=== PATIENT | female | born 1935 | race Caucasian/White ===

== ENCOUNTER 2017-06-25 14:23 | Inpatient (IN) | END 2017-07-03 17:15 | disposition home or self-care (01) | DRG 871 ==

== ENCOUNTER 2018-12-07 19:18 | Inpatient (IN) | payer OTHER ==
[~2018-12-07] VITALS: Ht 165.1 cm; Wt 47.1 kg
[~2018-12-07 19:18] MED LIST: ALBU18HF INHALATION; ASPI-903 PO; BRIM15DR2 BOTH EYES; CALC500T11 PO; COL625 PO; CYCL5.5D BOTH EARS; FLUT100B PO; IBUP-1541 PO; LEVO50TA7 PO; LEVO750T8 PO; LOSA100T15 PO; METO-319 PO; OLOP2.5D5 BOTH EARS; OMEP20CA16 PO; PROC5TAB9 PO
[2018-12-07] MEDS ORDERED: ALBUTEROL 0.5% (NEB) 2.5 MG/0.5 ML AMP INH STA (19:58)
[2018-12-07] MEDS ORDERED: METHYLPREDNISOLONE 125 MG INJ IV STA (19:58)
[2018-12-07] MEDS ORDERED: CEFTRIAXONE 1 GM/50 ML (PMX) 50 ML IVPB STA (22:29)
[2018-12-07] MEDS ORDERED: VANCOMYCIN 1 GM (PMX) 250 ML IVPB STA (22:29)
--- NOTE | 2018-12-07 23:45 | ERD ---
ER Documentation Chief Complaint Chief Complaint SOB X'S 7 DAYS, HX PULMONARY FIBROSIS HPI This is a 83-year-old female with a history of pulmonary fibrosis is complaining of shortness of breath today with difficulty breathing, ROS All systems reviewed and are negative except as per history of present illness. Medications Home Meds Active Scripts Levofloxacin* (Levofloxacin*) 750 Mg Tablet, 750 MG PO DAILY for 5 Days, #5 TAB Prov:MICHAEL BURNHAM 07/03/17 Reported Medications Brimonidine Tartrate* (Alphagan P*) 0.1%-15 Ml Opht Drops, 1 DROP BOTH EYES BID, #1 EA 06/25/17 Fluticasone Furoate (Arnuity Ellipta) 100 Mcg Blst.w.dev, 1 DOSE PO BID, #30 06/25/17 Cyclosporine (Restasis Multidose) 5.5 Ml Drops, 1 DROP BOTH EARS DAILY, BOTTLE 06/25/17 Olopatadine HCl (Pazeo) 2.5 Ml Drops, 1 DROP BOTH EARS QHS, BOTTLE 06/25/17 Calcium Carbonate (Oysco-500) 500 Mg Tablet, 500 MG PO BID, TAB 06/25/17 Colesevelam Hcl* (Welchol*) 625 Mg Tablet, 625 MG PO BID, TAB 06/25/17 Albuterol Sulfate* (Ventolin HFA*) 18 Gm Hfa.aer.ad, 2 PUFF INHALATION Q4H PRN for WHEEZING AND SOB, #1 INHALER 06/25/17 Metoprolol Succinate* (Toprol XL*) 50 Mg Tab.er.24h, 50 MG PO DAILY, #30 TAB 06/25/17 Prochlorperazine* (Prochlorperazine*) 5 Mg Tablet, 5 MG PO TID, TAB 06/25/17 Omeprazole* (Omeprazole*) 20 Mg Capsule.dr, 20 MG PO DAILY, #30 CAP 06/25/17 Levothyroxine Sodium* (Levothyroxine Sodium*) 50 Mcg Tablet, 50 MCG PO BEFORE BREAKFAST, #30 TAB 06/25/17 Aspirin* (Aspirin* Chew) 81 Mg Tab.chew, 81 MG PO DAILY, TAB.CHEW 06/25/17 Ibuprofen* (Ibuprofen*) 400 Mg Tablet, 400 MG PO TID PRN for PAIN, TAB 06/25/17 Losartan Potassium* (Losartan Potassium*) 100 Mg Tablet, 100 MG PO DAILY, TAB 06/25/17 Allergies Allergies: Coded Allergies: Penicillins (Verified Allergy, Severe, 06/25/17) codeine (Verified Allergy, Severe, 06/25/17) PMhx/Soc History of Surgery: Yes Anesthesia Reaction: No Hx Neurological Disorder: No Hx Respiratory Disorders: Yes (asthma, lung fibrosis) Hx Cardiac Disorders: Yes (HTN, high cholesterol) Hx Psychiatric Problems: No Hx Miscellaneous Medical Probl: Yes Hx Alcohol Use: No Hx Substance Use: No Hx Tobacco Use: No Smoking Status: Never smoker Physical Exam Vitals Vital Signs Date Temp Pulse Resp B/P (MAP) Pulse Ox O2 O2 Flow FiO2 Time Delivery Rate 12/07/18 98.9 70 22 133/70 100 Nasal 4.0 23:11 (91) Cannula 12/07/18 76 28 138/67 100 Nasal 4.0 21:32 (90) Cannula 12/07/18 100 4.0 20:09 12/07/18 73 21 100 Nasal 4.0 20:08 Cannula 12/07/18 Nasal 4.0 20:00 Cannula 12/07/18 Nasal 4 20:00 Cannula 12/07/18 71 24 123/59 100 Nasal 20:00 (80) Cannula 12/07/18 97.4 85 20 140/67 93 19:21 (91) Physical Exam Const: Well-developed, well-nourished Head: Atraumatic, normocephalic Eyes: Normal Conjunctiva, PERRLA, EOMI, normal sclera, no nystagmus ENT: Normal External Ears, Nose and Mouth, moist mucus membranes. Neck: Full range of motion. No meningismus, no lymphadenopathy. Resp: Mild increased work of breathing with decreased breath sounds bilaterally Cardio: Regular rate and rhythm, no murmurs, S1 S2 present Abd: Soft, non tender x 4, non distended. Normal bowel sounds, no guarding or rebound, no pulsitile abdominal masses or bruits Skin: No petechiae or rashes, no ecchymosis , no maculopapular rash Back: No midline or flank tenderness Ext: No cyanosis, or edema, FROM x 4, normal inspection, neurovascularly intact x 4 Neur: Awake and alert, STR 5/5 x 4, sensation intact x 4, no focal findings, cerebellum intact Psych: Normal Mood and Affect Result Diagram: 12/07/18200012/07/182000 Results 24 hrs Laboratory Tests Test 12/07/18 20:01 White Blood Count 22.4 10^3/ul Red Blood Count 4.20 10^6/ul Hemoglobin 12.4 g/dl Hematocrit 37.3 % Mean Corpuscular Volume 88.8 fl Mean Corpuscular Hemoglobin 29.5 pg Mean Corpuscular Hemoglobin Concent 33.2 g/dl Red Cell Distribution Width 12.7 % Platelet Count 303 10^3/UL Mean Platelet Volume 9.2 fl Immature Granulocytes % 1.100 % Neutrophils % 87.0 % Lymphocytes % 7.8 % Monocytes % 3.5 % Eosinophils % 0.2 % Basophils % 0.4 % Nucleated Red Blood Cells % 0.0 /100WBC Immature Granulocytes # 0.250 10^3/ul Neutrophils # 19.5 10^3/ul Lymphocytes # 1.7 10^3/ul Monocytes # 0.8 10^3/ul Eosinophils # 0.1 10^3/ul Basophils # 0.1 10^3/ul Nucleated Red Blood Cells # 0.0 10^3/ul Sodium Level 133 mmol/L Potassium Level 4.0 mmol/L Chloride Level 95 mmol/L Carbon Dioxide Level 28 mmol/L Anion Gap 10 Blood Urea Nitrogen 18 mg/dl Creatinine 0.81 mg/dl Est Glomerular Filtrat Rate mL/min mL/min Glucose Level 114 mg/dl Calcium Level 9.3 mg/dl Troponin I < 0.012 ng/ml Current Medications Medications Dose Sig/Zan Start Time Status Last (Trade) Ordered Route PRN Stop Time Admin Dose Reason Admin Albuterol 10 mg ONCE STAT 12/07/18 DC 12/07/18 (Proventil INH 19:58 12/07/18 20:03 0.5% (Neb)) 19:59 125 mg ONCE STAT 12/07/18 DC 12/07/18 Methylprednis IV 19:58 12/07/18 20:17 olone Sodium 19:59 Succinate (Solu-Medrol) Vancomycin 250 ml @ ONCE STAT 12/07/18 12/07/18 HCl 125 mls/hr IVPB 22:29 12/08/18 23:25 00:28 Ceftriaxone 50 ml @ ONCE STAT 12/07/18 DC 12/07/18 Sodium 100 mls/hr IVPB 22:29 12/07/18 23:09 22:58 Procedures/MDM [place] [id number] Radiology Main Line: [phone] DIAGNOSTIC IMAGING REPORT Patient: REBECCA TALLEY : 1935 Age: 83 Sex: F MR #: [id number] DOS: 12/07/181957 Ordering MD: SANDIE GOLDMAN DO Location: E/R Room/Bed: PROCEDURE: Portable chest x-ray. CLINICAL INDICATION: Asthma exacerbation. TECHNIQUE: Portable AP view of the chest. COMPARISON: Chest x-ray dated 06/28/2017, chest x-ray dated 06/29/2017. FINDINGS: There is diffuse infiltration of the left lung. There is minimal right basilar atelectasis. The cardiac silhouette is magnified. There are aortic calcifications. No pleural effusion is seen. There is no pneumothorax. IMPRESSION: Diffuse left lung infiltrates, suspicious for pneumonia. RPTAT: HTAR .Guevara Kat MD, MD Date Time Electronically viewed and signed by .Guevara Kat MD, MD on 12/07/2018 21:05 .R/ CC: SANDIE GOLDMAN DO [id number] Patient is elevated white blood count 22.4 with infiltrate consistent with pneumonia. I will admit her to hospital due to pulmonary fibrosis with concomitant pneumonia. She is not appearing septic and does not meet sepsis criteria Departure Diagnosis: Primary Impression: Pneumonia Pneumonia type: due to unspecified organism Laterality: left Lung lo cation: lower lobe of lung Qualified Codes: J18.1 - Lobar pneumonia, unspecified organism Additional Impression: Pulmonary fibrosis Condition: Stable SANDIE GOLDMAN DO Dec 07, 2018 23:45
[2018-12-08] VITALS (10 sets, daily range): BP systolic 116–138; BP diastolic 57–69; PULSE 67–115; RESP 17–22; Ht 165.1 cm; Wt 47.1 kg
[2018-12-08] MEDS ORDERED: MAGNESIUM HYDROXIDE 30ML CUP PO PRN (02:00)
[2018-12-08] MEDS ORDERED: HYDROCODONE/APAP (5/325) TAB PO PRN (02:00)
[2018-12-08] MEDS ORDERED: NITROGLYCERIN (SL) 0.4 MG TAB SL PRN (02:00)
[2018-12-08] MEDS ORDERED: DOCUSATE SODIUM 100 MG CAP PO PRN (02:00)
[2018-12-08] MEDS ORDERED: NACL 0.9% 3 ML SYG IV SCH (02:00)
[2018-12-08] MEDS ORDERED: ACETAMINOPHEN 325 MG TAB PO PRN ×2 (02:00)
[2018-12-08] MEDS ORDERED: ONDANSETRON 4 MG INJ IV PRN ×2 (02:00)
[2018-12-08] MEDS ORDERED: morphine 2 MG INJ IV PRN (02:00)
[2018-12-08] MEDS ORDERED: LORAZEPAM 2 MG INJ IV PRN (02:00)
[2018-12-08] MEDS ORDERED: hydrALAzine 20 MG INJ IV PRN (02:00)
[2018-12-08] MEDS: SOD CHLORIDE 0.45% 1,000 ML IV SCH ×3 (03:06→16:35)
--- NOTE | 2018-12-08 04:46 | HP ---
Date/Time of Note Date/Time of Note DATE: 12/08/18 TIME: 04:46 Assessment/Plan VTE Prophylaxis SCD applied (from Nsg): No SCD contraindicated: other Pharmacological prophylaxis: heparin Lines/Catheters IV Catheter Type (from Nrs): [place] Assessment/Plan Hospital Course Assessment and plan: 83-year-old female past medical history of pulmonary fibrosis using oxygen at home, pulmonary hypertension, essential hypertension, hypothyroidism, high cholesterol, prior pneumonia who presents with shortness of breath likely secondary pneumonia and possible wheezing symptoms. 1. Shortness of breath: Again likely secondary pneumonia, there may be a small obstructive lung disease component. Patient does have a history of pulmonary hypertension upon fibrosis however. -We will start broad-spectrum antibodies, follow-up TSH, A1c, lipid panel, Tylenol. Beta fevers, follow final culture results -Continue oxygen, will obtain pulmonary consult as patient does see a resolution manager as an outpatient -Given her slight decreased breath sounds and wheezing symptoms, we will also order for breathing treatments [id number] and low-dose IV steroids -PT eval as well 2. History of pulmonary hypertension and not fibrosis: See #1 3. Hypertension: Blood pressure stable continue current medications 4. High cholesterol: Continue statin, lipid panel 5. Hypothyroidism: Continue Synthroid, follow-up thyroid panel Result Diagram: 12/07/18200012/07/182000 Results 24hrs Laboratory Tests Test 12/07/18 20:01 White Blood Count 22.4 #H Red Blood Count 4.20 # Hemoglobin 12.4 # Hematocrit 37.3 # Mean Corpuscular Volume 88.8 Mean Corpuscular Hemoglobin 29.5 Mean Corpuscular Hemoglobin Concent 33.2 Red Cell Distribution Width 12.7 Platelet Count 303 # Mean Platelet Volume 9.2 Immature Granulocytes % 1.100 H Neutrophils % 87.0 H Lymphocytes % 7.8 L Monocytes % 3.5 Eosinophils % 0.2 Basophils % 0.4 Nucleated Red Blood Cells % 0.0 Immature Granulocytes # 0.250 H Neutrophils # 19.5 H Lymphocytes # 1.7 Monocytes # 0.8 Eosinophils # 0.1 Basophils # 0.1 Nucleated Red Blood Cells # 0.0 Sodium Level 133 L Potassium Level 4.0 Chloride Level 95 L Carbon Dioxide Level 28 Anion Gap 10 Blood Urea Nitrogen 18 Creatinine 0.81 Est Glomerular Filtrat Rate mL/min Glucose Level 114 Calcium Level 9.3 Troponin I < 0.012 Free Thyroxine 1.34 HPI/ROS Admit Date/Time Admit Date/Time Dec 07, 2018 at 23:52 Hx of Present Illness 83-year-old female past medical history of pulmonary fibrosis using oxygen at home, pulmonary hypertension, essential hypertension, hypothyroidism, high cholesterol, prior pneumonia who presents with shortness of breath. Symptoms have been going on for the last few days. Patient also had a couple of episodes of nonbilious nonbloody vomiting symptoms, also some phlegm production, white in nature, denies any fever chills, constipation, nausea, no upper or lower GI bleeding, no chest pain. She did have a couple episodes of loose stools. When she came in today she had chest x-ray performed which showed left lung infiltrate suspicious for pneumonia. PMH/Family/Social Past Medical History Medications Current Medications Ondansetron HCl (Zofran Inj) 4 mg ER BRIDGE PRN IV NAUSEA/VOMITING; Start 12/08/18 at 00:00; Stop 12/08/18 at 23:59 Acetaminophen (Tylenol Tab) 650 mg ER BRIDGE PRN PO .MILD PAIN 1-3 OR TEMP; Start 12/08/18 at 00:00; Stop 12/08/18 at 23:59 IV Flush (NS 3 ml) 3 ml PER PROTOCOL IV ; Start 12/08/18 at 02:00 Ondansetron HCl (Zofran Inj) 4 mg Q6H PRN IV NAUSEA/VOMITING; Start 12/08/18 at 02:00 Acetaminophen (Tylenol Tab) 650 mg Q6H PRN PO .PAIN 1-3 OR TEMP; Start 12/08/18 at 02:00 Acetaminophen/ Hydrocodone Bitart ([place] (5/325)) 1 tab Q6H PRN PO .MOD PAIN 4- 6; Start 12/08/18 at 02:00 Morphine Sulfate (morphine) 2 mg Q4H PRN IV .SEVERE PAIN 7-10; Start 12/08/18 at 02:00 Docusate Sodium (Colace) 100 mg Q12H PRN PO .CONSTIPATION; Start 12/08/18 at 0 2:00 Magnesium Hydroxide (Milk Of Mag) 30 ml DAILY PRN PO .CONSTIPATION; Start 12/08/18 at 02:00 Heparin Sodium (Porcine) (Heparin (5000 Units/1ml)) 5,000 unit Q12 SC ; Start 12/08/18 at 09:00 Sodium Chloride 1,000 ml @ 75 mls/hr [id number] IV Last administered on 12/08/18at 03:06; Admin Dose 75 MLS/HR; Start 12/08/18 at 01:36 Lorazepam (Ativan) 0.5 mg Q6H PRN IV ANXIETY; Start 12/08/18 at 02:00 Albuterol/ Ipratropium (Duoneb) 3 ml Q4H RESP THERAPY HHN ; Start 12/08/18 at 05:00 Hydralazine HCl (Apresoline) 10 mg Q6H PRN IV ELEVATED BLOOD PRESSURE; Start 12/08/18 at 02:00 Nitroglycerin (Nitroglycerin (Sl Tab) 0.4 Mg) 1 tab Q5M PRN SL ANGINA; Start 12/08/18 at 02:00 Aspirin (Aspirin) 81 mg DAILY PO ; Start 12/08/18 at 09:00 Calcium Carbonate (Oyster Shell Calcium) 1.25 gm BID PO ; Start 12/08/18 at 09:00 Levothyroxine Sodium (Synthroid) 50 mcg BEFORE BREAKFAST PO ; Start 12/08/18 at 07:00 Miscellaneous Information 1 drop BID BOTH EYES ; Start 12/08/18 at 09:00; Status UNV Miscellaneous Information 1 drop DAILY BOTH EARS ; Start 12/08/18 at 09:00; Status UNV Miscellaneous Information 1 dose BID PO ; Start 12/08/18 at 09:00; Status UNV Miscellaneous Information 1 drop QHS BOTH EARS ; Start 12/08/18 at 21:00; Status UNV Methylprednisolone Sodium Succinate (Solu-Medrol) 60 mg Q8 IV ; Start 12/08/18 at 06:00 Aztreonam 50 ml @ 100 mls/hr Q12 IVPB ; Start 12/08/18 at 09:00 Pantoprazole (Protonix Tab) 40 mg DAILY@06 PO ; Start 12/08/18 at 06:00 Coded Allergies: Penicillins (Verified Allergy, Severe, 06/25/17) codeine (Verified Allergy, Severe, 06/25/17) Past Surgical History Past Surgical Hx: other (Hysterectomy, knee surgery) Social History Alcohol Use: none Smoking Status: Never smoker Drug Use: none Exam/Review of Systems Vital Signs Vitals Vital Signs Date Temp Pulse Resp B/P (MAP) Pulse Ox O2 O2 Flow FiO2 Time Delivery Rate 12/08/18 97.8 73 134/69 98 Nasal 2.0 04:00 (90) Cannula 12/08/18 26 03:27 Exam Exam Gen: Lying in bed, NAD Head: Atraumatic. Eyes: Normal Conjunctiva. ENT: Normal External Ears, Nose and Mouth. Neck: Full range of motion. No meningismus. Resp: Mild increased work of breathing with decreased breath sounds bilaterally Cardio: Regular rate and rhythm. Abd: Soft, nondistended, normal bowel sounds, non tender. Ext: No lower extremity edema bilaterally Neuro: No focal deficits TU LEIGH Dec 08, 2018 04:46
[2018-12-08] MEDS: ALBUTEROL/IPRATROPIUM (NEB) 3 ML AMP HHN SCH ×5 (05:22→20:43)
[2018-12-08] MEDS: LEVOTHYROXINE 50 MCG TAB PO SCH (06:11)
[2018-12-08] MEDS: PANTOPRAZOLE (EC) 40 MG TAB PO SCH (06:11)
[2018-12-08] MEDS: METHYLPREDNISOLONE 125 MG INJ IV SCH ×3 (06:11→21:03)
[2018-12-08] MEDS: AZTREONAM 1 GM/NS (PMX) 50 ML IVPB SCH ×2 (08:16→21:02)
[2018-12-08] MEDS: CALCIUM CARBONATE 1.25 GM TAB PO SCH ×2 (08:16→21:03)
[2018-12-08] MEDS: ASPIRIN 81 MG TAB PO SCH (08:17)
[2018-12-08] MEDS: HEPARIN 5,000 UNIT/1 ML VIAL SC SCH ×2 (08:17→21:15)
[2018-12-08] MEDS ORDERED: CYCLOSPORINE BOTH EARS SCH (09:00)
[2018-12-08] MEDS ORDERED: NON-FORMULARY/PATIENT OWN MED (Omeprazole* 20 MG) PO SCH (09:00)
--- NOTE | 2018-12-08 09:37 | PN ---
Date/Time of Note Date/Time of Note DATE: 12/08/18 TIME: 09:34 Assessment/Plan VTE Prophylaxis Risk score (from [facility] [place])>0 risk: 5 SCD applied (from [facility] [place]): No SCD contraindicated: low risk/ambulating Pharmacological prophylaxis: heparin Lines/Catheters IV Catheter Type (from [facility]): Peripheral IV Assessment/Plan Problems: (1) Pneumonia Status: Acute Comment: Clinically responding to antibiotic therapy. Continue treatment including breathing treatments Qualifiers: Pneumonia type: due to unspecified organism Laterality: left Lung location: lower lobe of lung Qualified Codes: J18.1 - Lobar pneumonia, unspecified organism (2) Pulmonary fibrosis Status: Chronic Comment: Stable at this time. (3) Hyperlipidemia Status: Chronic Comment: Maintain treatment at this time Qualifiers: Hyperlipidemia type: mixed hyperlipidemia Qualified Codes: E78.2 - Mixed hyperlipidemia (4) Hypothyroidism Status: Chronic Comment: Maintain replacement therapy Qualifiers: Hypothyroidism type: acquired Qualified Codes: E03.9 - Hypothyroidism, unspecified (5) Hypertension Status: Chronic Comment: Continue with angiotensin II receptor alva treatment Qualifiers: Hypertension type: essential hypertension Qualified Codes: I10 - Essential (primary) hypertension (6) Glaucoma (increased eye pressure) Status: Chronic Comment: Continue with outpatient treatment Qualifiers: Glaucoma type: unspecified Laterality: bilateral Qualified Codes: H40.9 - Unspecified glaucoma Result Diagram: 12/07/18200012/07/182000 Results 24hrs Laboratory Tests Test 12/07/18 20:01 White Blood Count 22.4 #H Red Blood Count 4.20 # Hemoglobin 12.4 # Hematocrit 37.3 # Mean Corpuscular Volume 88.8 Mean Corpuscular Hemoglobin 29.5 Mean Corpuscular Hemoglobin Concent 33.2 Red Cell Distribution Width 12.7 Platelet Count 303 # Mean Platelet Volume 9.2 Immature Granulocytes % 1.100 H Neutrophils % 87.0 H Lymphocytes % 7.8 L Monocytes % 3.5 Eosinophils % 0.2 Basophils % 0.4 Nucleated Red Blood Cells % 0.0 Immature Granulocytes # 0.250 H Neutrophils # 19.5 H Lymphocytes # 1.7 Monocytes # 0.8 Eosinophils # 0.1 Basophils # 0.1 Nucleated Red Blood Cells # 0.0 Sodium Level 133 L Potassium Level 4.0 Chloride Level 95 L Carbon Dioxide Level 28 Anion Gap 10 Blood Urea Nitrogen 18 Creatinine 0.81 Est Glomerular Filtrat Rate mL/min Glucose Level 114 Calcium Level 9.3 Troponin I < 0.012 Free Thyroxine 1.34 Subjective 24 Hr Interval Summary Free Text/Dictation Patient reports she is feeling better than when she came into the emergency room yesterday Constitutional: no complaints (Denies fevers chills or sweats) Respiratory: cough (Cough is reduced), shortness of breath (Improved) Cardiovascular: no complaints Gastrointestinal: no complaints Genitourinary: no complaints Neurologic: no complaints Exam/Review of Systems Exam Vitals Vital Signs Date Temp Pulse Resp B/P (MAP) Pulse Ox O2 O2 Flow FiO2 Time Delivery Rate 12/08/18 72 17 95 Nasal 2.0 08:25 Cannula 12/08/18 98.0 134/63 07:15 (86) Constitutional: alert, oriented Neck: supple, non-tender Respiratory: normal air movement, crackles/rales (Especially left-sided) Cardiovascular: regular rate and rhythm, nl pulses Gastrointestinal: soft, nl liver, spleen, non-tender Results Results 24hrs Laboratory Tests Test 12/07/18 20:01 White Blood Count 22.4 #H Red Blood Count 4.20 # Hemoglobin 12.4 # Hematocrit 37.3 # Mean Corpuscular Volume 88.8 Mean Corpuscular Hemoglobin 29.5 Mean Corpuscular Hemoglobin Concent 33.2 Red Cell Distribution Width 12.7 Platelet Count 303 # Mean Platelet Volume 9.2 Immature Granulocytes % 1.100 H Neutrophils % 87.0 H Lymphocytes % 7.8 L Monocytes % 3.5 Eosinophils % 0.2 Basophils % 0.4 Nucleated Red Blood Cells % 0.0 Immature Granulocytes # 0.250 H Neutrophils # 19.5 H Lymphocytes # 1.7 Monocytes # 0.8 Eosinophils # 0.1 Basophils # 0.1 Nucleated Red Blood Cells # 0.0 Sodium Level 133 L Potassium Level 4.0 Chloride Level 95 L Carbon Dioxide Level 28 Anion Gap 10 Blood Urea Nitrogen 18 Creatinine 0.81 Est Glomerular Filtrat Rate mL/min Glucose Level 114 Calcium Level 9.3 Troponin I < 0.012 Free Thyroxine 1.34 Medications Medication Current Medications Ondansetron HCl (Zofran Inj) 4 mg ER BRIDGE PRN IV NAUSEA/VOMITING; Start 12/08/18 at 00:00; Stop 12/08/18 at 23:59 Acetaminophen (Tylenol Tab) 650 mg ER BRIDGE PRN PO .MILD PAIN 1-3 OR TEMP; Start 12/08/18 at 00:00; Stop 12/08/18 at 23:59 IV Flush (NS 3 ml) 3 ml PER PROTOCOL IV ; Start 12/08/18 at 02:00 Ondansetron HCl (Zofran Inj) 4 mg Q6H PRN IV NAUSEA/VOMITING; Start 12/08/18 at 02:00 Acetaminophen (Tylenol Tab) 650 mg Q6H PRN PO .PAIN 1-3 OR TEMP; Start 12/08/18 at 02:00 Acetaminophen/ Hydrocodone Bitart ([place] (5/325)) 1 tab Q6H PRN PO .MOD PAIN 4- 6; Start 12/08/18 at 02:00 Morphine Sulfate (morphine) 2 mg Q4H PRN IV .SEVERE PAIN 7-10; Start 12/08/18 at 02:00 Docusate Sodium (Colace) 100 mg Q12H PRN PO .CONSTIPATION; Start 12/08/18 at 02:00 Magnesium Hydroxide (Milk Of Mag) 30 ml DAILY PRN PO .CONSTIPATION; Start 12/08/18 at 02:00 Heparin Sodium (Porcine) (Heparin (5000 Units/1ml)) 5,000 unit Q12 SC Last administered on 12/08/18at 08:17; Admin Dose 5,000 UNIT; Start 12/08/18 at 09:00 Sodium Chloride 1,000 ml @ 75 mls/hr [id number] IV Last administered on 12/08/18at 03:06; Admin Dose 75 MLS/HR; Start 12/08/18 at 01:36 Lorazepam (Ativan) 0.5 mg Q6H PRN IV ANXIETY; Start 12/08/18 at 02:00 Albuterol/ Ipratropium (Duoneb) 3 ml Q4H RESP THERAPY HHN Last administered on 12/08/18at 08:25; Admin Dose 3 ML; Start 12/08/18 at 05:00 Hydralazine HCl (Apresoline) 10 mg Q6H PRN IV ELEVATED BLOOD PRESSURE; Start 12/08/18 at 02:00 Nitroglycerin (Nitroglycerin (Sl Tab) 0.4 Mg) 1 tab Q5M PRN SL ANGINA; Start 12/08/18 at 02:00 Aspirin (Aspirin) 81 mg DAILY PO Last administered on 12/08/18 08:17; Admin Dose 81 MG; Start 12/08/18 at 09:00 Calcium Carbonate (Oyster Shell Calcium) 1.25 gm BID PO Last administered on 12/08/18 08:16; Admin Dose 1.25 GM; Start 12/08/18 at 09:00 Levothyroxine Sodium (Synthroid) 50 mcg BEFORE BREAKFAST PO Last administered on 12/08/18 06:11; Admin Dose 50 MCG; Start 12/08/18 at 07:00 Miscellaneous Information 1 drop BID BOTH EYES ; Start 12/08/18 at 09:00; Status UNV Miscellaneous Information 1 drop DAILY BOTH EARS ; Start 12/08/18 at 09:00; Status UNV Miscellaneous Information 1 dose BID PO ; Start 12/08/18 at 09:00; Status UNV Miscellaneous Information 1 drop QHS BOTH EARS ; Start 12/08/18 at 21:00; Status UNV Methylprednisolone Sodium Succinate (Solu-Medrol) 60 mg Q8 IV Last administered on 12/08/18 06:11; Admin Dose 60 MG; Start 12/08/18 at 06:00 Aztreonam 50 ml @ 100 mls/hr Q12 IVPB Last administered on 12/08/18 08:16; Admin Dose 100 MLS/HR; Start 12/08/18 at 09:00 Pantoprazole (Protonix Tab) 40 mg DAILY@06 PO Last administered on 12/08/18 06:11; Admin Dose 40 MG; Start 12/08/18 at 06:00 SALLY BOSTON MD Dec 08, 2018 09:37
--- NOTE | 2018-12-08 11:01 | CONS ---
Assessment/Plan Assessment/Plan Assessment/Plan (Daily) Chest x-ray was reviewed which is showing extensive fibrotic changes mostly involving the left lung without any interval change compared to chest x-ray performed in June 2017. Assessment recommendation 1. Patient with history of pulmonary fibrosis admitted with what appears to be acute bronchitis with worsening shortness of breath. 2. No interval change in chest x-ray compared to June 2017 chest x-ray. Continue current supportive care. Consultation Date/Type/Reason Admit Date/Time Dec 07, 2018 at 23:52 Date of Consultation: Dec 08, 2018 Type of Consult Pulmonary Patient is a very pleasant 83-year-old lady who came into the hospital with a few days history of chest congestion coughing and increased shortness of breath, patient denies any fever, hemoptysis, complains of scant yellow to white sputum production. Denies any chest pain. Since admission patient is feeling much better. Denies any nausea, vomiting any high fever or chills. Complains of very mild sore throat. Past medical history; 1. History of pulmonary fibrosis. 2. Chronic hypoxemia, O2 dependent at home. Medications; reviewed. Allergies; penicillin and codeine. Social history; noncontributory. Family history; patient is single, has 5 children. Has a very supportive family. Occupational history; noncontributory. Review of systems; denies any headache, seizures, sinus symptoms. Complains of cough with production of white to green sputum. Denies any hemoptysis. Any fever or chills. Denies any body aches or myalgias. Denies any abdominal pain, nausea vomiting, melena, hematochezia any urinary symptoms. Patient has fair appetite. Denies any weight loss. Does complain of chronic dyspnea on minimal exertion. General exam; elderly woman, awake alert, currently in no distress. Date/Time of Note DATE: 12/08/18 TIME: 10:57 Past Medical History Home Meds Active Scripts Levofloxacin* (Levofloxacin*) 750 Mg Tablet, 750 MG PO DAILY for 5 Days, #5 TAB Prov:MICHAEL BURNHAM 07/03/17 Reported Medications Brimonidine Tartrate* (Alphagan P*) 0.1%-15 Ml Opht Drops, 1 DROP BOTH EYES BID, #1 EA 06/25/17 Fluticasone Furoate (Arnuity Ellipta) 100 Mcg Blst.w.dev, 1 DOSE PO BID, #30 06/25/17 Cyclosporine (Restasis Multidose) 5.5 Ml Drops, 1 DROP BOTH EARS DAILY, BOTTLE 06/25/17 Olopatadine HCl (Pazeo) 2.5 Ml Drops, 1 DROP BOTH EARS QHS, BOTTLE 06/25/17 Calcium Carbonate (Oysco-500) 500 Mg Tablet, 500 MG PO BID, TAB 06/25/17 Colesevelam Hcl* (Welchol*) 625 Mg Tablet, 625 MG PO BID, TAB 06/25/17 Albuterol Sulfate* (Ventolin HFA*) 18 Gm Hfa.aer.ad, 2 PUFF INHALATION Q4H PRN for WHEEZING AND SOB, #1 INHALER 06/25/17 Metoprolol Succinate* (Toprol XL*) 50 Mg Tab.er.24h, 50 MG PO DAILY, #30 TAB 06/25/17 Prochlorperazine* (Prochlorperazine*) 5 Mg Tablet, 5 MG PO TID, TAB 06/25/17 Omeprazole* (Omeprazole*) 20 Mg Capsule.dr, 20 MG PO DAILY, #30 CAP 06/25/17 Levothyroxine Sodium* (Levothyroxine Sodium*) 50 Mcg Tablet, 50 MCG PO BEFORE BREAKFAST, #30 TAB 06/25/17 Aspirin* (Aspirin* Chew) 81 Mg Tab.chew, 81 MG PO DAILY, TAB.CHEW 06/25/17 Ibuprofen* (Ibuprofen*) 400 Mg Tablet, 400 MG PO TID PRN for PAIN, TAB 06/25/17 Losartan Potassium* (Losartan Potassium*) 100 Mg Tablet, 100 MG PO DAILY, TAB 06/25/17 Medications Current Medications IV Flush (NS 3 ml) 3 ml PER PROTOCOL IV ; Start 12/08/18 at 02:00 Ondansetron HCl (Zofran Inj) 4 mg Q6H PRN IV NAUSEA/VOMITING; Start 12/08/18 at 02:00 Acetaminophen (Tylenol Tab) 650 mg Q6H PRN PO .PAIN 1-3 OR TEMP; Start 12/08/18 at 02:00 Acetaminophen/ Hydrocodone Bitart ([place] (5/325)) 1 tab Q6H PRN PO .MOD PAIN 4- 6; Start 12/08/18 at 02:00 Morphine Sulfate (morphine) 2 mg Q4H PRN IV .SEVERE PAIN 7-10; Start 12/08/18 at 02:00 Docusate Sodium (Colace) 100 mg Q12H PRN PO .CONSTIPATION; Start 12/08/18 at 02:00 Magnesium Hydroxide (Milk Of Mag) 30 ml DAILY PRN PO .CONSTIPATION; Start 12/08/18 at 02:00 Heparin Sodium (Porcine) (Heparin (5000 Units/1ml)) 5,000 unit Q12 SC Last administered on 12/08/18at 08:17; Admin Dose 5,000 UNIT; Start 12/08/18 at 09:00 Sodium Chloride 1,000 ml @ 75 mls/hr [id number] IV Last administered on 12/08/18at 03:06; Admin Dose 75 MLS/HR; Start 12/08/18 at 01:36 Lorazepam (Ativan) 0.5 mg Q6H PRN IV ANXIETY; Start 12/08/18 at 02:00 Albuterol/ Ipratropium (Duoneb) 3 ml Q4H RESP THERAPY HHN Last administered on 12/08/18at 08:25; Admin Dose 3 ML; Start 12/08/18 at 05:00 Hydralazine HCl (Apresoline) 10 mg Q6H PRN IV ELEVATED BLOOD PRESSURE; Start 12/08/18 at 02:00 Nitroglycerin (Nitroglycerin (Sl Tab) 0.4 Mg) 1 tab Q5M PRN SL ANGINA; Start 12/08/18 at 02:00 Aspirin (Aspirin) 81 mg DAILY PO Last administered on 12/08/18at 08:17; Admin Dose 81 MG; Start 12/08/18 at 09:00 Calcium Carbonate (Oyster Shell Calcium) 1.25 gm BID PO Last administered on 12/08/18at 08:16; Admin Dose 1.25 GM; Start 12/08/18 at 09:00 Levothyroxine Sodium (Synthroid) 50 mcg BEFORE BREAKFAST PO Last administered on 12/08/18at 06:11; Admin Dose 50 MCG; Start 12/08/18 at 07:00 Miscellaneous Information 1 drop BID BOTH EYES ; Start 12/08/18 at 09:00; Status UNV Miscellaneous Information 1 drop DAILY BOTH EARS ; Start 12/08/18 at 09:00; Status UNV Miscellaneous Information 1 dose BID PO ; Start 12/08/18 at 09:00; Status UNV Miscellaneous Information 1 drop QHS BOTH EARS ; Start 12/08/18 at 21:00; Status UNV Methylprednisolone Sodium Succinate (Solu-Medrol) 60 mg Q8 IV Last administered on 12/08/18at 06:11; Admin Dose 60 MG; Start 12/08/18 at 06:00 Aztreonam 50 ml @ 100 mls/hr Q12 IVPB Last administered on 12/08/18at 08:16; Admin Dose 100 MLS/HR; Start 12/08/18 at 09:00 Pantoprazole (Protonix Tab) 40 mg DAILY@06 PO Last administered on 12/08/18at 06:11; Admin Dose 40 MG; Start 12/08/18 at 06:00 Allergies: Coded Allergies: Penicillins (Verified Allergy, Severe, 06/25/17) codeine (Verified Allergy, Severe, 06/25/17) Past Surgical History Past Surgical Hx: other (Hysterectomy, knee surgery) Social History Alcohol Use: none Smoking Status: Never smoker Drug Use: none Exam/Review of Systems Exam Vitals Vital Signs Date Temp Pulse Resp B/P (MAP) Pulse Ox O2 O2 Flow FiO2 Time Delivery Rate 12/08/18 72 17 95 Nasal 2.0 08:25 Cannula 12/08/18 98.0 134/63 07:15 (86) Exam H EENT exam; supple neck, no JVD. No lymphadenopathy. Midline trachea. No thyromegaly. No neck masses. Patient is edentulous and has dentures in place. Chest exam; bilateral crackles. S1-S2 audible, no murmurs. Regular rhythm. Abdomen exam; soft, nontender. No organomegaly. Bowel sounds audible. Extremity exam : No peripheral edema or clubbing. 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 No Results Result Diagram: 12/07/18200012/07/182000 Results 24hrs Laboratory Tests Test 12/07/18 20:01 White Blood Count 22.4 #H Red Blood Count 4.20 # Hemoglobin 12.4 # Hematocrit 37.3 # Mean Corpuscular Volume 88.8 Mean Corpuscular Hemoglobin 29.5 Mean Corpuscular Hemoglobin Concent 33.2 Red Cell Distribution Width 12.7 Platelet Count 303 # Mean Platelet Volume 9.2 Immature Granulocytes % 1.100 H Neutrophils % 87.0 H Lymphocytes % 7.8 L Monocytes % 3.5 Eosinophils % 0.2 Basophils % 0.4 Nucleated Red Blood Cells % 0.0 Immature Granulocytes # 0.250 H Neutrophils # 19.5 H Lymphocytes # 1.7 Monocytes # 0.8 Eosinophils # 0.1 Basophils # 0.1 Nucleated Red Blood Cells # 0.0 Sodium Level 133 L Potassium Level 4.0 Chloride Level 95 L Carbon Dioxide Level 28 Anion Gap 10 Blood Urea Nitrogen 18 Creatinine 0.81 Est Glomerular Filtrat Rate mL/min Glucose Level 114 Calcium Level 9.3 Troponin I < 0.012 Free Thyroxine 1.34 Medications Medication Current Medications IV Flush (NS 3 ml) 3 ml PER PROTOCOL IV ; Start 12/08/18 at 02:00 Ondansetron HCl (Zofran Inj) 4 mg Q6H PRN IV NAUSEA/VOMITING; Start 12/08/18 at 02:00 Acetaminophen (Tylenol Tab) 650 mg Q6H PRN PO .PAIN 1-3 OR TEMP; Start 12/08/18 at 02:00 Acetaminophen/ Hydrocodone Bitart ([place] (5/325)) 1 tab Q6H PRN PO .MOD PAIN 4- 6; Start 12/08/18 at 02:00 Morphine Sulfate (morphine) 2 mg Q4H PRN IV .SEVERE PAIN 7-10; Start 12/08/18 at 02:00 Docusate Sodium (Colace) 100 mg Q12H PRN PO .CONSTIPATION; Start 12/08/18 at 02:00 Magnesium Hydroxide (Milk Of Mag) 30 ml DAILY PRN PO .CONSTIPATION; Start 12/08/18 at 02:00 Heparin Sodium (Porcine) (Heparin (5000 Units/1ml)) 5,000 unit Q12 SC Last administered on 12/08/18at 08:17; Admin Dose 5,000 UNIT; Start 12/08/18 at 09:00 Sodium Chloride 1,000 ml @ 75 mls/hr [id number] IV Last administered on 12/08/18at 03:06; Admin Dose 75 MLS/HR; Start 12/08/18 at 01:36 Lorazepam (Ativan) 0.5 mg Q6H PRN IV ANXIETY; Start 12/08/18 at 02:00 Albuterol/ Ipratropium (Duoneb) 3 ml Q4H RESP THERAPY HHN Last administered on 12/08/18 08:25; Admin Dose 3 ML; Start 12/08/18 at 05:00 Hydralazine HCl (Apresoline) 10 mg Q6H PRN IV ELEVATED BLOOD PRESSURE; Start 12/08/18 at 02:00 Nitroglycerin (Nitroglycerin (Sl Tab) 0.4 Mg) 1 tab Q5M PRN SL ANGINA; Start 12/08/18 at 02:00 Aspirin (Aspirin) 81 mg DAILY PO Last administered on 12/08/18 08:17; Admin Dose 81 MG; Start 12/08/18 at 09:00 Calcium Carbonate (Oyster Shell Calcium) 1.25 gm BID PO Last administered on 12/08/18 08:16; Admin Dose 1.25 GM; Start 12/08/18 at 09:00 Levothyroxine Sodium (Synthroid) 50 mcg BEFORE BREAKFAST PO Last administered on 12/08/18 06:11; Admin Dose 50 MCG; Start 12/08/18 at 07:00 Miscellaneous Information 1 drop BID BOTH EYES ; Start 12/08/18 at 09:00; Status UNV Miscellaneous Information 1 drop DAILY BOTH EARS ; Start 12/08/18 at 09:00; Status UNV Miscellaneous Information 1 dose BID PO ; Start 12/08/18 at 09:00; Status UNV Miscellaneous Information 1 drop QHS BOTH EARS ; Start 12/08/18 at 21:00; Status UNV Methylprednisolone Sodium Succinate (Solu-Medrol) 60 mg Q8 IV Last administered on 12/08/18 06:11; Admin Dose 60 MG; Start 12/08/18 at 06:00 Aztreonam 50 ml @ 100 mls/hr Q12 IVPB Last administered on 12/08/18 08:16; Admin Dose 100 MLS/HR; Start 12/08/18 at 09:00 Pantoprazole (Protonix Tab) 40 mg DAILY@06 PO Last administered on 12/08/18 06:11; Admin Dose 40 MG; Start 12/08/18 at 06:00 AIDE GONZALES Dec 08, 2018 11:01
[2018-12-08] MEDS: BRIMONIDINE 0.15% 5 ML OPH BOTH EYES SCH ×2 (12:13→21:02)
[2018-12-08] MEDS: OLOPATADINE 0.1% 5 ML OPH BOTH EYES SCH ×2 (13:02→21:01)
[2018-12-08] MEDS: FLUTICASONE 0.05% 16 GM NAS SPRAY NASAL SCH (21:02)
[2018-12-09] VITALS (10 sets, daily range): BP systolic 117–131; BP diastolic 56–77; PULSE 69–89; RESP 17–19
[2018-12-09] MEDS: ALBUTEROL/IPRATROPIUM (NEB) 3 ML AMP HHN SCH ×6 (01:49→20:58)
[2018-12-09] MEDS: LEVOTHYROXINE 50 MCG TAB PO SCH (06:15)
[2018-12-09] MEDS: PANTOPRAZOLE (EC) 40 MG TAB PO SCH (06:15)
[2018-12-09] MEDS: SOD CHLORIDE 0.45% 1,000 ML IV SCH (06:16)
[2018-12-09] MEDS: METHYLPREDNISOLONE 125 MG INJ IV SCH ×3 (06:16→21:22)
[2018-12-09] MEDS: ASPIRIN 81 MG TAB PO SCH (08:03)
[2018-12-09] MEDS: BRIMONIDINE 0.15% 5 ML OPH BOTH EYES SCH ×2 (08:03→21:21)
[2018-12-09] MEDS: HEPARIN 5,000 UNIT/1 ML VIAL SC SCH ×2 (08:03→21:30)
[2018-12-09] MEDS: OLOPATADINE 0.1% 5 ML OPH BOTH EYES SCH ×2 (08:03→21:21)
[2018-12-09] MEDS: FLUTICASONE 0.05% 16 GM NAS SPRAY NASAL SCH ×2 (08:03→21:22)
[2018-12-09] MEDS: CALCIUM CARBONATE 1.25 GM TAB PO SCH ×2 (08:03→21:22)
--- NOTE | 2018-12-09 09:17 | PN ---
Date/Time of Note Date/Time of Note DATE: 12/09/18 TIME: 09:13 Assessment/Plan VTE Prophylaxis Risk score (from Nsg)>0 risk: 5 Pharmacological prophylaxis: heparin Lines/Catheters IV Catheter Type (from Nrsg): Peripheral IV Assessment/Plan Hospital Course S: breathing is better O: Constitutional: alert, oriented, elderly Head: atraumatic, normocephalic Respiratory: diminished, bibasal crackles Cardiovascular: tachy, no M Gastrointestinal: S/ NT / ND / +BS Extremities: no edema, good radial pulses assessment and plan: 83-year-old pleasant female who had presented to the emergency room with shortness of breath, previously on home oxygen for chronic pulmonary fibrosis who is admitted and managed as follows 1. Acute respiratory failure on chronic respiratory failure -likely 2.2 #3 -Patient was never completely ruled out for an acute coronary syndrome as shortness of breath was thought to be secondary to pulmonary source, but for completeness we will rule out an ACS now and get a 2D echo -Pulmonary also feels there is no real change in the chest x-ray as compared to prior -continue bronchodilators -Continue antibiotics 2. Leucocytosis -steroid induced versus Sepsis -wbc was high on arrival 3. Acute bronchitis with possible concern for pneumonia with history of pulmonary fibrosis and pulmonary hypertension 4. Chronic normocytic anemia 5. Hyponatremia likely dilutional -spot diuresis 6. Chronic hypothyroidism on Synthroid therapy -Tight control? slightly reduce synthroid dose -Evaluation of TSH and free T4 is not highly suggestive of tachycardia being secondary to hyper thyroidism 7. Hypertension: Currently well controlled 8. Chronic glaucoma 9. 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 She did have mildly elevated peak PA systolic pressure of 44 however consistent with pulm HTN 11. Diastolic CHF? check BNP Dispo: -remain on tele for now for cardiac monitoring, plan to dc tomorrow if HR and serum Na improved Prophylaxis : Heparin Result Diagram: 12/09/18 0454 12/09/18 0454 Results 24hrs Laboratory Tests Test 12/09/18 04:54 White Blood Count 22.9 H Red Blood Count 3.45 L Hemoglobin 10.1 L Hematocrit 30.5 L Mean Corpuscular Volume 88.4 Mean Corpuscular Hemoglobin 29.3 Mean Corpuscular Hemoglobin Concent 33.1 Red Cell Distribution Width 13.0 Platelet Count 279 Mean Platelet Volume 9.8 Immature Granulocytes % 2.700 H Neutrophils % 91.9 H Lymphocytes % 2.9 L Monocytes % 2.2 Eosinophils % 0.0 Basophils % 0.3 Nucleated Red Blood Cells % 0.0 Immature Granulocytes # 0.610 H Neutrophils # 21.1 H Lymphocytes # 0.7 L Monocytes # 0.5 Eosinophils # 0.0 Basophils # 0.1 Nucleated Red Blood Cells # 0.0 Sodium Level 131 L Potassium Level 3.9 Chloride Level 96 L Carbon Dioxide Level 29 Anion Gap 6 Blood Urea Nitrogen 18 Creatinine 0.72 Est Glomerular Filtrat Rate mL/min Glucose Level 154 Hemoglobin A1c 5.7 Calcium Level 8.9 Phosphorus Level 3.3 Magnesium Level 2.1 Triglycerides Level 66 Cholesterol Level 152 LDL Cholesterol, Calculated 66 HDL Cholesterol 73 Cholesterol/HDL Ratio 2.0 Thyroid Stimulating Hormone (TSH) 0.341 L Exam/Review of Systems Exam Vitals Vital Signs Date Temp Pulse Resp B/P (MAP) Pulse Ox O2 O2 Flow FiO2 Time Delivery Rate 12/09/18 82 17 97 Nasal 2.0 08:11 Cannula 12/09/18 98.0 119/57 07:32 (77) Intake and Output 12/08/18 12/08/18 12/09/18 1515:00 23:00 07:00 IntakeIntake Total 400 ml BalanceBalance 400 ml Results Results 24hrs Laboratory Tests Test 12/09/18 04:54 White Blood Count 22.9 H Red Blood Count 3.45 L Hemoglobin 10.1 L Hematocrit 30.5 L Mean Corpuscular Volume 88.4 Mean Corpuscular Hemoglobin 29.3 Mean Corpuscular Hemoglobin Concent 33.1 Red Cell Distribution Width 13.0 Platelet Count 279 Mean Platelet Volume 9.8 Immature Granulocytes % 2.700 H Neutrophils % 91.9 H Lymphocytes % 2.9 L Monocytes % 2.2 Eosinophils % 0.0 Basophils % 0.3 Nucleated Red Blood Cells % 0.0 Immature Granulocytes # 0.610 H Neutrophils # 21.1 H Lymphocytes # 0.7 L Monocytes # 0.5 Eosinophils # 0.0 Basophils # 0.1 Nucleated Red Blood Cells # 0.0 Sodium Level 131 L Potassium Level 3.9 Chloride Level 96 L Carbon Dioxide Level 29 Anion Gap 6 Blood Urea Nitrogen 18 Creatinine 0.72 Est Glomerular Filtrat Rate mL/min Glucose Level 154 Hemoglobin A1c 5.7 Calcium Level 8.9 Phosphorus Level 3.3 Magnesium Level 2.1 Triglycerides Level 66 Cholesterol Level 152 LDL Cholesterol, Calculated 66 HDL Cholesterol 73 Cholesterol/HDL Ratio 2.0 Thyroid Stimulating Hormone (TSH) 0.341 L Medications Medication Current Medications IV Flush (NS 3 ml) 3 ml PER PROTOCOL IV ; Start 12/08/18 at 02:00 Ondansetron HCl (Zofran Inj) 4 mg Q6H PRN IV NAUSEA/VOMITING; Start 12/08/18 at 02:00 Acetaminophen (Tylenol Tab) 650 mg Q6H PRN PO .PAIN 1-3 OR TEMP; Start 12/08/18 at 02:00 Acetaminophen/ Hydrocodone Bitart ([place] (5/325)) 1 tab Q6H PRN PO .MOD PAIN 4- 6; Start 12/08/18 at 02:00 Morphine Sulfate (morphine) 2 mg Q4H PRN IV .SEVERE PAIN 7-10; Start 12/08/18 at 02:00 Docusate Sodium (Colace) 100 mg Q12H PRN PO .CONSTIPATION; Start 12/08/18 at 02:00 Magnesium Hydroxide (Milk Of Mag) 30 ml DAILY PRN PO .CONSTIPATION; Start 12/08/18 at 02:00 Heparin Sodium (Porcine) (Heparin (5000 Units/1ml)) 5,000 unit Q12 SC Last ad ministered on 12/09/18at 08:03; Admin Dose 5,000 UNIT; Start 12/08/18 at 09:00 Sodium Chloride 1,000 ml @ 75 mls/hr [id number] IV Last administered on 12/09/18at 06:16; Admin Dose 75 MLS/HR; Start 12/08/18 at 01:36 Lorazepam (Ativan) 0.5 mg Q6H PRN IV ANXIETY; Start 12/08/18 at 02:00 Albuterol/ Ipratropium (Duoneb) 3 ml Q4H RESP THERAPY HHN Last administered on 12/09/18at 08:10; Admin Dose 3 ML; Start 12/08/18 at 05:00 Hydralazine HCl (Apresoline) 10 mg Q6H PRN IV ELEVATED BLOOD PRESSURE; Start 12/08/18 at 02:00 Nitroglycerin (Nitroglycerin (Sl Tab) 0.4 Mg) 1 tab Q5M PRN SL ANGINA; Start 12/08/18 at 02:00 Aspirin (Aspirin) 81 mg DAILY PO Last administered on 12/09/18 08:03; Admin Dose 81 MG; Start 12/08/18 at 09:00 Calcium Carbonate (Oyster Shell Calcium) 1.25 gm BID PO Last administered on 08:03; Admin Dose 1.25 GM; Start 12/08/18 at 09:00 Levothyroxine Sodium (Synthroid) 50 mcg BEFORE BREAKFAST PO Last administered on 12/09/18 06:15; Admin Dose 50 MCG; Start 12/08/18 at 07:00 Brimonidine Tartrate (Alphagan P 0.15%) 1 drop BID BOTH EYES Last administered on 12/09/18 08:03; Admin Dose 1 DROP; Start 12/08/18 at 12:00 Fluticasone Propionate (Flonase 0.05% Nasal) 1 spray BID NASAL Last administered on 12/09/18 08:03; Admin Dose 1 SPRAY; Start 12/08/18 at 21:00 Olopatadine HCl (Patanol 0.1% Oph) 1 drop BID BOTH EYES Last administered on 12/09/18 08:03; Admin Dose 1 DROP; Start 12/08/18 at 12:00 Methylprednisolone Sodium Succinate (Solu-Medrol) 60 mg Q8 IV Last administered on 12/09/18 06:16; Admin Dose 60 MG; Start 12/08/18 at 06:00; Stop 12/11/18 at 05:59 Aztreonam 50 ml @ 100 mls/hr Q12 IVPB Last administered on 12/08/18 21:02; Admin Dose 100 MLS/HR; Start 12/08/18 at 09:00 Pantoprazole (Protonix Tab) 40 mg DAILY@06 PO Last administered on 12/09/18 06:15; Admin Dose 40 MG; Start 12/08/18 at 06:00 LAUREEN VANEGAS Dec 09, 2018 09:17
[2018-12-09] MEDS ORDERED: FUROSEMIDE 20 MG INJ IV ONE (09:30)
[2018-12-09] MEDS: AZTREONAM 1 GM/NS (PMX) 50 ML IVPB SCH ×2 (10:30→21:19)
[2018-12-09] MEDS: DOCUSATE SODIUM 100 MG CAP PO SCH ×2 (10:30→21:22)
--- NOTE | 2018-12-09 11:29 | CONS ---
Assessment/Plan Assessment/Plan Assessment/Plan (Daily) Assessment and recommendations; 1. Patient with history of pulmonary fibrosis admitted with what appears to be acute bronchitis with possibly some element of bronchopneumonia, clinically improving. 2. History of hypertension and hypothyroidism. Continue current supportive care. Consultation Date/Type/Reason Admit Date/Time Dec 07, 2018 at 23:52 Initial Consult Date 12/08/18 Type of Consult Pulmonary Patient is a very pleasant 83-year-old lady who came into the hospital with a few days history of chest congestion coughing and increased shortness of breath, patient denies any fever, hemoptysis, complains of scant yellow to white sputum production. Denies any chest pain. Since admission patient is feeling much better. Denies any nausea, vomiting any high fever or chills. Complains of very mild sore throat. Past medical history; 1. History of pulmonary fibrosis. 2. Chronic hypoxemia, O2 dependent at home. Medications; reviewed. Allergies; penicillin and codeine. Social history; noncontributory. Family history; patient is single, has 5 children. Has a very supportive family. Occupational history; noncontributory. Review of systems; denies any headache, seizures, sinus symptoms. Complains of cough with production of white to green sputum. Denies any hemoptysis. Any fever or chills. Denies any body aches or myalgias. Denies any abdominal pain, nausea vomiting, melena, hematochezia any urinary symptoms. Patient has fair appetite. Denies any weight loss. Does complain of chronic dyspnea on minimal exertion. General exam; elderly woman, awake alert, currently in no distress. Date/Time of Note DATE: 12/09/18 TIME: 11:28 24 HR Interval Summary Free Text/Dictation Patient's condition is stable. Reports decreasing chest congestion and shortness of breath. General exam; elderly woman, appears comfortable. Awake and alert. Currently no distress. On 2 L nasal cannula. Exam/Review of Systems Exam Vitals Vital Signs Date Temp Pulse Resp B/P (MAP) Pulse Ox O2 O2 Flow FiO2 Time Delivery Rate 12/09/18 82 17 97 Nasal 2.0 08:11 Cannula 12/09/18 98.0 119/57 07:32 (77) Intake and Output 12/08/18 12/08/18 12/09/18 1515:00 23:00 07:00 IntakeIntake Total 400 ml BalanceBalance 400 ml Exam H EENT exam; supple neck, no JVD. No lymphadenopathy. Midline trachea. No thyromegaly. Patient has dentures in place. Chest exam; bilateral crackles. S1-S2 audible, no murmurs. Regular rhythm. Abdomen exam; soft, scaphoid. Nontender. No organomegaly. Bowel sounds audible. Extremity exam; no peripheral edema clubbing. 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 Results Result Diagram: 12/09/18 0454 12/09/18 0454 Results 24hrs Laboratory Tests Test 12/09/18 04:52 12/09/18 04:54 Creatine Kinase < 20 L Creatine Kinase Index Creatinine Kinase MB (Mass) 1.38 Troponin I < 0.012 White Blood Count 22.9 H Red Blood Count 3.45 L Hemoglobin 10.1 L Hematocrit 30.5 L Mean Corpuscular Volume 88.4 Mean Corpuscular Hemoglobin 29.3 Mean Corpuscular Hemoglobin Concent 33.1 Red Cell Distribution Width 13.0 Platelet Count 279 Mean Platelet Volume 9.8 Immature Granulocytes % 2.700 H Neutrophils % 91.9 H Lymphocytes % 2.9 L Monocytes % 2.2 Eosinophils % 0.0 Basophils % 0.3 Nucleated Red Blood Cells % 0.0 Immature Granulocytes # 0.610 H Neutrophils # 21.1 H Lymphocytes # 0.7 L Monocytes # 0.5 Eosinophils # 0.0 Basophils # 0.1 Nucleated Red Blood Cells # 0.0 Sodium Level 131 L Potassium Level 3.9 Chloride Level 96 L Carbon Dioxide Level 29 Anion Gap 6 Blood Urea Nitrogen 18 Creatinine 0.72 Est Glomerular Filtrat Rate mL/min Glucose Level 154 Hemoglobin A1c 5.7 Calcium Level 8.9 Phosphorus Level 3.3 Magnesium Level 2.1 Triglycerides Level 66 Cholesterol Level 152 LDL Cholesterol, Calculated 66 HDL Cholesterol 73 Cholesterol/HDL Ratio 2.0 Thyroid Stimulating Hormone (TSH) 0.341 L Medications Medication Current Medications IV Flush (NS 3 ml) 3 ml PER PROTOCOL IV ; Start 12/08/18 at 02:00 Ondansetron HCl (Zofran Inj) 4 mg Q6H PRN IV NAUSEA/VOMITING; Start 12/08/18 at 02:00 Acetaminophen (Tylenol Tab) 650 mg Q6H PRN PO .PAIN 1-3 OR TEMP; Start 12/08/18 at 02:00 Acetaminophen/ Hydrocodone Bitart ([place] (5/325)) 1 tab Q6H PRN PO .MOD PAIN 4- 6; Start 12/08/18 at 02:00 Morphine Sulfate (morphine) 2 mg Q4H PRN IV .SEVERE PAIN 7-10; Start 12/08/18 at 02:00 Magnesium Hydroxide (Milk Of Mag) 30 ml DAILY PRN PO .CONSTIPATION; Start 12/08/18 at 02:00 Heparin Sodium (Porcine) (Heparin (5000 Units/1ml)) 5,000 unit Q12 SC Last administered on 12/09/18 08:03; Admin Dose 5,000 UNIT; Start 12/08/18 at 09:00 Lorazepam (Ativan) 0.5 mg Q6H PRN IV ANXIETY; Start 12/08/18 at 02:00 Albuterol/ Ipratropium (Duoneb) 3 ml Q4H RESP THERAPY HHN Last administered on 12/09/18 08:10; Admin Dose 3 ML; Start 12/08/18 at 05:00 Hydralazine HCl (Apresoline) 10 mg Q6H PRN IV ELEVATED BLOOD PRESSURE; Start 12/08/18 at 02:00 Nitroglycerin (Nitroglycerin (Sl Tab) 0.4 Mg) 1 tab Q5M PRN SL ANGINA; Start 12/08/18 at 02:00 Aspirin (Aspirin) 81 mg DAILY PO Last administered on 12/09/18 08:03; Admin Dose 81 MG; Start 12/08/18 at 09:00 Calcium Carbonate (Oyster Shell Calcium) 1.25 gm BID PO Last administered on 12/09/18 08:03; Admin Dose 1.25 GM; Start 12/08/18 at 09:00 Brimonidine Tartrate (Alphagan P 0.15%) 1 drop BID BOTH EYES Last administered on 12/09/18 08:03; Admin Dose 1 DROP; Start 12/08/18 at 12:00 Fluticasone Propionate (Flonase 0.05% Nasal) 1 spray BID NASAL Last administered on 12/09/18 08:03; Admin Dose 1 SPRAY; Start 12/08/18 at 21:00 Olopatadine HCl (Patanol 0.1% Oph) 1 drop BID BOTH EYES Last administered on 6/10/19at 08:03; Admin Dose 1 DROP; Start 12/08/18 at 12:00 Methylprednisolone Sodium Succinate (Solu-Medrol) 60 mg Q8 IV Last administered on 12/09/18at 06:16; Admin Dose 60 MG; Start 12/08/18 at 06:00; Stop 12/11/18 at 05:59 Aztreonam 50 ml @ 100 mls/hr Q12 IVPB Last administered on 12/09/18at 10:30; Admin Dose 100 MLS/HR; Start 12/08/18 at 09:00 Pantoprazole (Protonix Tab) 40 mg DAILY@06 PO Last administered on 12/09/18at 06:15; Admin Dose 40 MG; Start 12/08/18 at 06:00 Docusate Sodium (Colace) 100 mg Q12 PO Last administered on 12/09/18at 10:30; Admin Dose 100 MG; Start 12/09/18 at 09:30 Levothyroxine Sodium (Synthroid) 25 mcg BEFORE BREAKFAST PO ; Start 12/10/18 at 07:00 Metoprolol Tartrate (Lopressor) 12.5 mg BID PO ; Start 12/09/18 at 21:00 AIDE GONZALES 10, 2019 11:29
--- NOTE | 2018-12-09 16:04 | RADRPT ---
Echocardiogram Report Patient Name: REBECCA TALLEYPatient ID: [id number] : 1935 (83y 11m)Study Date: 12/09/2018 1:39:06 PM Gender: FAccession #: [id number] Tech: Derek Agarwal [facility] Location: [address] Ref.Physician: LAUREEN VANEGAS Height(Cm): BSA: Weight(Kg): Quality: AdequateOrder Physician: LAUREEN VANEGAS Account #: Procedures: Echocardiographic Report: Transthoracic echocardiogram with complete 2D, M-Mode, and doppler examination. Indications: Shortness of breath. Measurements: 2D/M Mode Doppler Measurement Value Normal Range Measurement Value Normal Range LVIDd 2D 4.2 [ 3.8 - 5.2 ] cm AV Peak Anthony 1.7 [ 100.0 - 170.0 ] cm/sec LVIDs 2D 2.7 [ 2.2 - 3.5 ] cm AV Peak PG 11.0 [ 2.0 - 9.0 ] mmHg LVPWd 2D 1.0 [ 0.6 - 0.9 ] cm LVOT Peak Anthony 1.3 [ 70.0 - 110.0 ] cm/sec IVSd 2D 1.0 [ 0.6 - 0.9 ] cm LVOT Peak PG 7.0 [ 2.0 - 6.0 ] mmHg AoR Diam 2D 2.9 [ 2.3 - 3.1 ] cm MV E Peak Anthony 1.0 [ 60.0 - 130.0 ] cm/sec EDV 2D 78.1 [ 46.0 - 106.0 ] ml MV A Peak Anthony 1.3 [ 100.0 - 120.0 ] cm/sec ESV 2D 27.5 [ 14.0 - 42.0 ] ml MV E/A 0.8 [ 0.8 - 1.5 ] ratio EF 2D 64.8 [ 54.0 - 74.0 ] percent MV Decel Time 130 [ 104 - 258 ] msec LA Dimen 2D 3.5 [ 2.7 - 3.8 ] cm Lat E` Anthony 0.1 [ 10.0 - 15.0 ] cm/sec Lateral E/E` 17.2 [ 1.0 - 2.0 ] ratio MV E/A 0.8 [ 0.8 - 1.5 ] ratio TR Peak Anthony 3.0 [ 100.0 - 280.0 ] cm/sec TR Peak PG 37.0 mmHg RVSP 47.0 [ 10.0 - 36.0 ] mmHg Findings: Left Ventricle: Normal left ventricular systolic function. Normal left ventricular cavity size. Normal left ventricular wall thickness. Ejection fraction is visually estimated at 55 %. Tissue Doppler/Mitral Doppler indices are consistent with impaired relaxation (Stage I diastolic dysfunction). Right Ventricle: Normal right ventricular size. Normal right ventricular systolic function. Left Atrium: The left atrium is normal in size. Right Atrium: The right atrium is normal in size. Mitral Valve: Mild mitral leaflet calcification. Mild mitral annular calcification. Trace mitral regurgitation. Aortic Valve: No significant aortic stenosis or insufficiency. Aortic cusps appear mildly calcified. Tricuspid Valve: Normal appearance of the tricuspid valve. The estimated Peak RVSP is 45 mmHg. There is mild to moderate tricuspid regurgitation. Pericardium: Normal pericardium with no significant pericardial effusion. Aorta: Normal aortic root. IVC: Normal size and normal respiratory collapse consistent with normal right atrial pressure. Conclusions: Normal left ventricular systolic function. Normal left ventricular cavity size. Normal left ventricular wall thickness. Ejection fraction is visually estimated at 55 %. Tissue Doppler/Mitral Doppler indices are consistent with impaired relaxation (Stage I diastolic dysfunction). Mild mitral leaflet calcification. Mild mitral annular calcification. Trace mitral regurgitation. No significant aortic stenosis or insufficiency. Aortic cusps appear mildly calcified. Normal appearance of the tricuspid valve. The estimated Peak RVSP is 45 mmHg. There is mild to moderate tricuspid regurgitation. Normal size and normal respiratory collapse consistent with normal right atrial pressure. Electronically Signed By: Angel Samson 2018-12-09 16:03:45 PDT
[2018-12-09] MEDS: METOPROLOL 25 MG TAB PO SCH (21:23)
[2018-12-10] VITALS (13 sets, daily range): BP systolic 110–154; BP diastolic 57–70; PULSE 67–91; RESP 16–24
[2018-12-10] MEDS: ALBUTEROL/IPRATROPIUM (NEB) 3 ML AMP HHN SCH ×6 (01:54→21:00)
[2018-12-10] MEDS: LEVOTHYROXINE 25 MCG TAB PO SCH (06:43)
[2018-12-10] MEDS: PANTOPRAZOLE (EC) 40 MG TAB PO SCH (06:43)
[2018-12-10] MEDS: METHYLPREDNISOLONE 125 MG INJ IV SCH (06:43)
[2018-12-10] MEDS: ASPIRIN 81 MG TAB PO SCH (08:39)
[2018-12-10] MEDS: CALCIUM CARBONATE 1.25 GM TAB PO SCH ×2 (08:39→21:20)
[2018-12-10] MEDS: FLUTICASONE 0.05% 16 GM NAS SPRAY NASAL SCH ×2 (08:39→21:20)
[2018-12-10] MEDS: DOCUSATE SODIUM 100 MG CAP PO SCH ×2 (08:39→21:20)
[2018-12-10] MEDS: OLOPATADINE 0.1% 5 ML OPH BOTH EYES SCH ×2 (08:40→21:20)
[2018-12-10] MEDS: BRIMONIDINE 0.15% 5 ML OPH BOTH EYES SCH ×2 (08:40→21:21)
[2018-12-10] MEDS: METOPROLOL 25 MG TAB PO SCH ×2 (08:41→21:26)
[2018-12-10] MEDS: AZTREONAM 1 GM/NS (PMX) 50 ML IVPB SCH ×2 (08:45→21:25)
[2018-12-10] MEDS: HEPARIN 5,000 UNIT/1 ML VIAL SC SCH ×2 (09:02→21:42)
[2018-12-10] MEDS ORDERED: FUROSEMIDE 20 MG INJ IV ONE (10:30)
--- NOTE | 2018-12-10 11:32 | CONS ---
Assessment/Plan Assessment/Plan Assessment/Plan (Daily) Assessment and recommendations; 1. Patient admitted with acute bronchitis history of severe idiopathic pulmonary fibrosis with significant interval clinical improvement. 2. History of underlying hypothyroidism and hypertension. Discontinue Solu-Medrol, start prednisone 30 mg daily. Continue other supportive measures. Anticipate discharge in 24 to 48 hours. Consultation Date/Type/Reason Admit Date/Time Dec 07, 2018 at 23:52 Initial Consult Date 12/08/18 Type of Consult Pulmonary Patient is a very pleasant 83-year-old lady who came into the hospital with a few days history of chest congestion coughing and increased shortness of breath, patient denies any fever, hemoptysis, complains of scant yellow to white sputum production. Denies any chest pain. Since admission patient is feeling much better. Denies any nausea, vomiting any high fever or chills. Complains of very mild sore throat. Past medical history; 1. History of pulmonary fibrosis. 2. Chronic hypoxemia, O2 dependent at home. Medications; reviewed. Allergies; penicillin and codeine. Social history; noncontributory. Family history; patient is single, has 5 children. Has a very supportive family. Occupational history; noncontributory. Review of systems; denies any headache, seizures, sinus symptoms. Complains of cough with production of white to green sputum. Denies any hemoptysis. Any fever or chills. Denies any body aches or myalgias. Denies any abdominal pain, nausea vomiting, melena, hematochezia any urinary symptoms. Patient has fair appetite. Denies any weight loss. Does complain of chronic dyspnea on minimal exertion. General exam; elderly woman, awake alert, currently in no distress. Date/Time of Note DATE: 12/10/18 TIME: 11:30 24 HR Interval Summary Free Text/Dictation Patient's condition is continually improving with significant improvement in shortness of breath, chest congestion and sputum production. Exam; elderly woman, awake alert, currently no distress. On 2 L nasal cannula. Exam/Review of Systems Exam Vitals Vital Signs Date Temp Pulse Resp B/P (MAP) Pulse Ox O2 O2 Flow FiO2 Time Delivery Rate 12/10/18 97.5 91 149/68 96 Nasal 11:22 (95) Cannula 12/10/18 18 2.0 08:30 12/10/18 28 05:36 Intake and Output 12/09/18 12/09/18 12/10/18 1515:00 23:00 07:00 IntakeIntake Total 850 ml 360 ml OutputOutput Total 2300 ml BalanceBalance -1450 ml 360 ml Exam H EENT exam; supple neck, no JVD. No lymphadenopathy. Midline trachea. No thyromegaly. Patient has dentures in place. Chest exam; bilateral crackles. S1-S2 audible, no murmurs. Regular rhythm. Abdomen exam; soft, nontender. No organomegaly. Bowel sounds audible. Extremity exam; no peripheral edema or clubbing. CURRICULUM CONSULTANT exam; no focal deficit. Results Result Diagram: 12/10/18 0521 12/10/18 0521 Results 24hrs Laboratory Tests Test 12/10/18 05:21 White Blood Count 19.5 H Red Blood Count 3.70 L Hemoglobin 10.9 L Hematocrit 33.2 L Mean Corpuscular Volume 89.7 Mean Corpuscular Hemoglobin 29.5 Mean Corpuscular Hemoglobin Concent 32.8 Red Cell Distribution Width 12.8 Platelet Count 309 Mean Platelet Volume 9.8 Immature Granulocytes % 2.100 H Neutrophils % 90.1 H Lymphocytes % 4.2 L Monocytes % 3.2 Eosinophils % 0.0 Basophils % 0.4 Nucleated Red Blood Cells % 0.0 Immature Granulocytes # 0.400 H Neutrophils # 17.6 H Lymphocytes # 0.8 Monocytes # 0.6 Eosinophils # 0.0 Basophils # 0.1 Nucleated Red Blood Cells # 0.0 Sodium Level 133 L Potassium Level 4.0 Chloride Level 94 L Carbon Dioxide Level 36 H Anion Gap 3 L Blood Urea Nitrogen 19 Creatinine 0.76 Est Glomerular Filtrat Rate mL/min Glucose Level 139 Calcium Level 9.2 Medications Medication Current Medications IV Flush (NS 3 ml) 3 ml PER PROTOCOL IV ; Start 12/08/18 at 02:00 Ondansetron HCl (Zofran Inj) 4 mg Q6H PRN IV NAUSEA/VOMITING; Start 12/08/18 at 02:00 Acetaminophen (Tylenol Tab) 650 mg Q6H PRN PO .PAIN 1-3 OR TEMP; Start 12/08/18 at 02:00 Acetaminophen/ Hydrocodone Bitart ([place] (5/325)) 1 tab Q6H PRN PO .MOD PAIN 4- 6; Start 12/08/18 at 02:00 Morphine Sulfate (morphine) 2 mg Q4H PRN IV .SEVERE PAIN 7-10; Start 12/08/18 at 02:00 Magnesium Hydroxide (Milk Of Mag) 30 ml DAILY PRN PO .CONSTIPATION; Start 12/08/18 at 02:00 Heparin Sodium (Porcine) (Heparin (5000 Units/1ml)) 5,000 unit Q12 SC Last administered on 12/10/18 09:02; Admin Dose 5,000 UNIT; Start 12/08/18 at 09:00 Lorazepam (Ativan) 0.5 mg Q6H PRN IV ANXIETY; Start 12/08/18 at 02:00 Albuterol/ Ipratropium (Duoneb) 3 ml Q4H RESP THERAPY HHN Last administered on 12/10/18 08:30; Admin Dose 3 ML; Start 12/08/18 at 05:00 Hydralazine HCl (Apresoline) 10 mg Q6H PRN IV ELEVATED BLOOD PRESSURE; Start 12/08/18 at 02:00 Nitroglycerin (Nitroglycerin (Sl Tab) 0.4 Mg) 1 tab Q5M PRN SL ANGINA; Start 12/08/18 at 02:00 Aspirin (Aspirin) 81 mg DAILY PO Last administered on 12/10/18 08:39; Admin Dose 81 MG; Start 12/08/18 at 09:00 Calcium Carbonate (Oyster Shell Calcium) 1.25 gm BID PO Last administered on 12/10/18 08:39; Admin Dose 1.25 GM; Start 12/08/18 at 09:00 Brimonidine Tartrate (Alphagan P 0.15%) 1 drop BID BOTH EYES Last administered on 12/10/18 08:40; Admin Dose 1 DROP; Start 12/08/18 at 12:00 Fluticasone Propionate (Flonase 0.05% Nasal) 1 spray BID NASAL Last administered on 12/10/18 08:39; Admin Dose 1 SPRAY; Start 12/08/18 at 21:00 Olopatadine HCl (Patanol 0.1% Oph) 1 drop BID BOTH EYES Last administered on 12/10/18 08:40; Admin Dose 1 DROP; Start 12/08/18 at 12:00 Methylprednisolone Sodium Succinate (Solu-Medrol) 60 mg Q8 IV Last administered on 12/10/18 06:43; Admin Dose 60 MG; Start 12/08/18 at 06:00; Stop 12/11/18 at 05:59 Aztreonam 50 ml @ 100 mls/hr Q12 IVPB Last administered on 12/10/18 08:45; Admin Dose 100 MLS/HR; Start 12/08/18 at 09:00 Pantoprazole (Protonix Tab) 40 mg DAILY@06 PO Last administered on 12/10/18 06:43; Admin Dose 40 MG; Start 12/08/18 at 06:00 Docusate Sodium (Colace) 100 mg Q12 PO Last administered on 12/10/18 08:39; Admin Dose 100 MG; Start 12/09/18 at 09:30 Levothyroxine Sodium (Synthroid) 25 mcg BEFORE BREAKFAST PO Last administered on 12/10/18 06:43; Admin Dose 25 MCG; Start 12/10/18 at 07:00 Metoprolol Tartrate (Lopressor) 12.5 mg BID PO Last administered on 12/10/18 08:41; Admin Dose 12.5 MG; Start 12/09/18 at 21:00 AIDE GONZALES Dec 10, 2018 11:32
--- NOTE | 2018-12-10 14:32 | PN ---
Date/Time of Note Date/Time of Note DATE: 12/10/18 TIME: 14:32 Assessment/Plan VTE Prophylaxis Risk score (from Nsg)>0 risk: 5 Pharmacological prophylaxis: heparin Lines/Catheters IV Catheter Type (from Nrsg): Peripheral IV Assessment/Plan Hospital Course S: breathing is better O: Constitutional: alert, oriented, elderly Head: atraumatic, normocephalic Respiratory: diminished, bibasal crackles Cardiovascular: tachy, no M Gastrointestinal: S/ NT / ND / +BS Extremities: no edema, good radial pulses assessment and plan: 83-year-old pleasant female who had presented to the emergency room with shortness of breath, previously on home oxygen for chronic pulmonary fibrosis who is admitted and managed as follows 1. Acute respiratory failure on chronic respiratory failure: improved -likely 2.2 #3 -Pulmonary also feels there is no real change in the chest x-ray as compared to prior -continue bronchodilators -Continue antibiotics 2. Leucocytosis -steroid induced? -wbc trending down 3. Acute bronchitis with possible concern for pneumonia with history of pulmonary fibrosis and pulmonary hypertension 4. Chronic normocytic anemia 5. Hyponatremia likely dilutional -improved with spot diuresis 6. Chronic hypothyroidism on Synthroid therapy -Tight control?, I slightly reduced Synthroid dose -Free T4 wnl however 7. Hypertension: Currently well controlled 8. Chronic glaucoma 9. Tachycardia improved on BB 11. Diastolic CHF: elevated BNP with Diastolic dysfunction on echo and preserved EF 12. mild to moderate tricuspid regurgitation. Dispo: -Pulm wants patient to stay for 24-48hrs more, remain on tele for now, encourage ambulation Prophylaxis : Heparin Result Diagram: 12/10/18 0512/10/18 0521 Results 24hrs Laboratory Tests Test 12/10/18 05:21 White Blood Count 19.5 H Red Blood Count 3.70 L Hemoglobin 10.9 L Hematocrit 33.2 L Mean Corpuscular Volume 89.7 Mean Corpuscular Hemoglobin 29.5 Mean Corpuscular Hemoglobin Concent 32.8 Red Cell Distribution Width 12.8 Platelet Count 309 Mean Platelet Volume 9.8 Immature Granulocytes % 2.100 H Neutrophils % 90.1 H Lymphocytes % 4.2 L Monocytes % 3.2 Eosinophils % 0.0 Basophils % 0.4 Nucleated Red Blood Cells % 0.0 Immature Granulocytes # 0.400 H Neutrophils # 17.6 H Lymphocytes # 0.8 Monocytes # 0.6 Eosinophils # 0.0 Basophils # 0.1 Nucleated Red Blood Cells # 0.0 Sodium Level 133 L Potassium Level 4.0 Chloride Level 94 L Carbon Dioxide Level 36 H Anion Gap 3 L Blood Urea Nitrogen 19 Creatinine 0.76 Est Glomerular Filtrat Rate mL/min Glucose Level 139 Calcium Level 9.2 Exam/Review of Systems Exam Vitals Vital Signs Date Temp Pulse Resp B/P (MAP) Pulse Ox O2 O2 Flow FiO2 Time Delivery Rate 12/10/18 83 26 96 Nasal 2.0 12:43 Cannula 12/10/18 97.5 149/68 11:22 (95) 12/10/18 28 05:36 Intake and Output 12/09/18 12/09/18 12/10/18 1515:00 23:00 07:00 IntakeIntake Total 850 ml 360 ml OutputOutput Total 2300 ml BalanceBalance -1450 ml 360 ml Results Results 24hrs Laboratory Tests Test 12/10/18 05:21 White Blood Count 19.5 H Red Blood Count 3.70 L Hemoglobin 10.9 L Hematocrit 33.2 L Mean Corpuscular Volume 89.7 Mean Corpuscular Hemoglobin 29.5 Mean Corpuscular Hemoglobin Concent 32.8 Red Cell Distribution Width 12.8 Platelet Count 309 Mean Platelet Volume 9.8 Immature Granulocytes % 2.100 H Neutrophils % 90.1 H Lymphocytes % 4.2 L Monocytes % 3.2 Eosinophils % 0.0 Basophils % 0.4 Nucleated Red Blood Cells % 0.0 Immature Granulocytes # 0.400 H Neutrophils # 17.6 H Lymphocytes # 0.8 Monocytes # 0.6 Eosinophils # 0.0 Basophils # 0.1 Nucleated Red Blood Cells # 0.0 Sodium Level 133 L Potassium Level 4.0 Chloride Level 94 L Carbon Dioxide Level 36 H Anion Gap 3 L Blood Urea Nitrogen 19 Creatinine 0.76 Est Glomerular Filtrat Rate mL/min Glucose Level 139 Calcium Level 9.2 Medications Medication Current Medications IV Flush (NS 3 ml) 3 ml PER PROTOCOL IV ; Start 12/08/18 at 02:00 Ondansetron HCl (Zofran Inj) 4 mg Q6H PRN IV NAUSEA/VOMITING; Start 12/08/18 at 02:00 Acetaminophen (Tylenol Tab) 650 mg Q6H PRN PO .PAIN 1-3 OR TEMP; Start 12/08/18 at 02:00 Acetaminophen/ Hydrocodone Bitart ([place] (5/325)) 1 tab Q6H PRN PO .MOD PAIN 4- 6; Start 12/08/18 at 02:00 Morphine Sulfate (morphine) 2 mg Q4H PRN IV .SEVERE PAIN 7-10; Start 12/08/18 at 02:00 Magnesium Hydroxide (Milk Of Mag) 30 ml DAILY PRN PO .CONSTIPATION; Start 12/08/18 at 02:00 Heparin Sodium (Porcine) (Heparin (5000 Units/1ml)) 5,000 unit Q12 SC Last administered on 12/10/18 09:02; Admin Dose 5,000 UNIT; Start 12/08/18 at 09:00 Lorazepam (Ativan) 0.5 mg Q6H PRN IV ANXIETY; Start 12/08/18 at 02:00 Albuterol/ Ipratropium (Duoneb) 3 ml Q4H RESP THERAPY HHN Last administered on 12/10/18 12:43; Admin Dose 3 ML; Start 12/08/18 at 05:00 Hydralazine HCl (Apresoline) 10 mg Q6H PRN IV ELEVATED BLOOD PRESSURE; Start 12/08/18 at 02:00 Nitroglycerin (Nitroglycerin (Sl Tab) 0.4 Mg) 1 tab Q5M PRN SL ANGINA; Start 12/08/18 at 02:00 Aspirin (Aspirin) 81 mg DAILY PO Last administered on 12/10/18 08:39; Admin Dose 81 MG; Start 12/08/18 at 09:00 Calcium Carbonate (Oyster Shell Calcium) 1.25 gm BID PO Last administered on 12/10/18 08:39; Admin Dose 1.25 GM; Start 12/08/18 at 09:00 Brimonidine Tartrate (Alphagan P 0.15%) 1 drop BID BOTH EYES Last administered on 12/10/18 08:40; Admin Dose 1 DROP; Start 12/08/18 at 12:00 Fluticasone Propionate (Flonase 0.05% Nasal) 1 spray BID NASAL Last administered on 12/10/18 08:39; Admin Dose 1 SPRAY; Start 12/08/18 at 21:00 Olopatadine HCl (Patanol 0.1% Oph) 1 drop BID BOTH EYES Last administered on 12/10/18 08:40; Admin Dose 1 DROP; Start 12/08/18 at 12:00 Aztreonam 50 ml @ 100 mls/hr Q12 IVPB Last administered on 12/10/18 08:45; Admin Dose 100 MLS/HR; Start 12/08/18 at 09:00 Pantoprazole (Protonix Tab) 40 mg DAILY@06 PO Last administered on 12/10/18 06:43; Admin Dose 40 MG; Start 12/08/18 at 06:00 Docusate Sodium (Colace) 100 mg Q12 PO Last administered on 12/10/18 08:39; Admin Dose 100 MG; Start 12/09/18 at 09:30 Levothyroxine Sodium (Synthroid) 25 mcg BEFORE BREAKFAST PO Last administered on 12/10/18 06:43; Admin Dose 25 MCG; Start 12/10/18 at 07:00 Metoprolol Tartrate (Lopressor) 12.5 mg BID PO Last administered on 12/10/18 08:41; Admin Dose 12.5 MG; Start 12/09/18 at 21:00 Prednisone (Prednisone) 30 mg DAILY PO ; Start 12/11/18 at 09:00 LAUREEN VANEGAS Dec 10, 2018 14:32
[2018-12-11] MEDS: ALBUTEROL/IPRATROPIUM (NEB) 3 ML AMP HHN SCH ×6 (00:16→20:51)
[2018-12-11 02:00] VITALS: BP 119/59; PULSE 64; RESP 18
[2018-12-11] MEDS: LEVOTHYROXINE 25 MCG TAB PO SCH (06:13)
[2018-12-11] MEDS: PANTOPRAZOLE (EC) 40 MG TAB PO SCH (06:13)
[2018-12-11 07:55] VITALS: BP 160/76; PULSE 65; RESP 20
[2018-12-11] MEDS: OLOPATADINE 0.1% 5 ML OPH BOTH EYES SCH ×2 (09:15→21:08)
[2018-12-11] MEDS: BRIMONIDINE 0.15% 5 ML OPH BOTH EYES SCH ×2 (09:15→21:07)
[2018-12-11] MEDS: FLUTICASONE 0.05% 16 GM NAS SPRAY NASAL SCH ×2 (09:15→21:06)
[2018-12-11] MEDS: AZTREONAM 1 GM/NS (PMX) 50 ML IVPB SCH ×2 (09:15→21:08)
[2018-12-11] MEDS: HEPARIN 5,000 UNIT/1 ML VIAL SC SCH ×2 (09:16→21:21)
[2018-12-11] MEDS: CALCIUM CARBONATE 1.25 GM TAB PO SCH ×2 (09:16→21:07)
[2018-12-11] MEDS: DOCUSATE SODIUM 100 MG CAP PO SCH ×2 (09:16→21:07)
[2018-12-11] MEDS: predniSONE 10 MG TAB PO SCH (09:16)
[2018-12-11] MEDS: ASPIRIN 81 MG TAB PO SCH (09:16)
[2018-12-11] MEDS: METOPROLOL 25 MG TAB PO SCH ×2 (09:17→21:07)
--- NOTE | 2018-12-11 11:38 | CONS ---
Consultation Date/Type/Reason Admit Date/Time Dec 07, 2018 at 23:52 Initial Consult Date 12/08/18 Type of Consult Pulmonary Patient is a very pleasant 83-year-old lady who came into the hospital with a few days history of chest congestion coughing and increased shortness of breath, patient denies any fever, hemoptysis, complains of scant yellow to white sputum production. Denies any chest pain. Since admission patient is feeling much better. Denies any nausea, vomiting any high fever or chills. Complains of very mild sore throat. Past medical history; 1. History of pulmonary fibrosis. 2. Chronic hypoxemia, O2 dependent at home. Medications; reviewed. Allergies; penicillin and codeine. Social history; noncontributory. Family history; patient is single, has 5 children. Has a very supportive family. Occupational history; noncontributory. Review of systems; denies any headache, seizures, sinus symptoms. Complains of cough with production of white to green sputum. Denies any hemoptysis. Any fever or chills. Denies any body aches or myalgias. Denies any abdominal pain, nausea vomiting, melena, hematochezia any urinary symptoms. Patient has fair appetite. Denies any weight loss. Does complain of chronic dyspnea on minimal exertion. General exam; elderly woman, awake alert, currently in no distress. Date/Time of Note DATE: 12/11/18 TIME: 11:36 24 HR Interval Summary Free Text/Dictation Patient's condition is fairly stable. Denies any shortness of breath at rest. General exam; elderly woman, awake and alert. On 2 L nasal cannula. Currently in no distress. H EENT exam; supple neck, no neck masses. No JVD. Patient has dentures in place. Chest exam; bilateral crackles. S1-S2 audible, no murmurs. Abdomen exam; soft, scaphoid. Nontender. Bowel sounds audible. Extremity exam; no peripheral edema clubbing. PROGRAM COORDINATOR EXECUTIVE EDUCATION exam; no focal deficit. Assessment and recommendations; 1. Patient admitted with acute bronchitis with a history of severe IPF. Clinically much improved. 2. Acute urinary retention. Bladder scan revealing 700 mL urine. Continue current supportive care. Patient to undergo straight cath , needs monitoring for further urinary retention. Consider [facility] jail. Taper prednisone in 24 hours to 10 mg daily. Exam/Review of Systems Exam Vitals Vital Signs Date Temp Pulse Resp B/P (MAP) Pulse Ox O2 O2 Flow FiO2 Time Delivery Rate 12/11/18 78 18 98 Nasal 2.0 09:28 Cannula 12/11/18 97.5 160/76 07:55 (104) 12/10/18 28 05:36 Intake and Output 12/10/18 12/10/18 12/11/18 1515:00 23:00 07:00 IntakeIntake Total 50 ml 1130 ml BalanceBalance 50 ml 1130 ml Results Result Diagram: 12/11/18 0456 12/11/18 0456 Results 24hrs Laboratory Tests Test 12/11/18 04:56 White Blood Count 11.8 #H Red Blood Count 4.32 Hemoglobin 12.5 Hematocrit 38.6 Mean Corpuscular Volume 89.4 Mean Corpuscular Hemoglobin 28.9 L Mean Corpuscular Hemoglobin Concent 32.4 Red Cell Distribution Width 13.0 Platelet Count 351 Mean Platelet Volume 10.1 Immature Granulocytes % 1.500 H Neutrophils % 61.1 Lymphocytes % 23.4 Monocytes % 13.5 H Eosinophils % 0.2 Basophils % 0.3 Nucleated Red Blood Cells % 0.0 Immature Granulocytes # 0.180 H Neutrophils # 7.2 Lymphocytes # 2.8 Monocytes # 1.6 H Eosinophils # 0.0 Basophils # 0.0 Nucleated Red Blood Cells # 0.0 Sodium Level 138 Potassium Level 3.9 Chloride Level 91 L Carbon Dioxide Level 39 H Anion Gap 8 Blood Urea Nitrogen 22 H Creatinine 0.70 Est Glomerular Filtrat Rate mL/min Glucose Level 81 # Calcium Level 8.9 Medications Medication Current Medications IV Flush (NS 3 ml) 3 ml PER PROTOCOL IV ; Start 12/08/18 at 02:00 Ondansetron HCl (Zofran Inj) 4 mg Q6H PRN IV NAUSEA/VOMITING; Start 12/08/18 at 02:00 Acetaminophen (Tylenol Tab) 650 mg Q6H PRN PO .PAIN 1-3 OR TEMP; Start 12/08/18 at 02:00 Acetaminophen/ Hydrocodone Bitart ([place] (5/325)) 1 tab Q6H PRN PO .MOD PAIN 4- 6; Start 12/08/18 at 02:00 Morphine Sulfate (morphine) 2 mg Q4H PRN IV .SEVERE PAIN 7-10; Start 12/08/18 at 02:00 Magnesium Hydroxide (Milk Of Mag) 30 ml DAILY PRN PO .CONSTIPATION; Start 12/08/18 at 02:00 Heparin Sodium (Porcine) (Heparin (5000 Units/1ml)) 5,000 unit Q12 SC Last administered on 12/11/18 09:16; Admin Dose 5,000 UNIT; Start 12/08/18 at 09:00 Lorazepam (Ativan) 0.5 mg Q6H PRN IV ANXIETY; Start 12/08/18 at 02:00 Albuterol/ Ipratropium (Duoneb) 3 ml Q4H RESP THERAPY HHN Last administered on 12/11/18 09:28; Admin Dose 3 ML; Start 12/08/18 at 05:00 Hydralazine HCl (Apresoline) 10 mg Q6H PRN IV ELEVATED BLOOD PRESSURE; Start 12/08/18 at 02:00 Nitroglycerin (Nitroglycerin (Sl Tab) 0.4 Mg) 1 tab Q5M PRN SL ANGINA; Start 12/08/18 at 02:00 Aspirin (Aspirin) 81 mg DAILY PO Last administered on 12/11/18 09:16; Admin Dose 81 MG; Start 12/08/18 at 09:00 Calcium Carbonate (Oyster Shell Calcium) 1.25 gm BID PO Last administered on 12/11/18 09:16; Admin Dose 1.25 GM; Start 12/08/18 at 09:00 Brimonidine Tartrate (Alphagan P 0.15%) 1 drop BID BOTH EYES Last administered on 12/11/18 09:15; Admin Dose 1 DROP; Start 12/08/18 at 12:00 Fluticasone Propionate (Flonase 0.05% Nasal) 1 spray BID NASAL Last administered on 12/11/18 09:15; Admin Dose 1 SPRAY; Start 12/08/18 at 21:00 Olopatadine HCl (Patanol 0.1% Oph) 1 drop BID BOTH EYES Last administered on 12/11/18 09:15; Admin Dose 1 DROP; Start 12/08/18 at 12:00 Aztreonam 50 ml @ 100 mls/hr Q12 IVPB Last administered on 12/11/18 09:15; Admin Dose 100 MLS/HR; Start 12/08/18 at 09:00 Pantoprazole (Protonix Tab) 40 mg DAILY@06 PO Last administered on 12/11/18 06:13; Admin Dose 40 MG; Start 12/08/18 at 06:00 Docusate Sodium (Colace) 100 mg Q12 PO Last administered on 12/11/18 09:16; Admin Dose 100 MG; Start 12/09/18 at 09:30 Levothyroxine Sodium (Synthroid) 25 mcg BEFORE BREAKFAST PO Last administered on 12/11/18 06:13; Admin Dose 25 MCG; Start 12/10/18 at 07:00 Metoprolol Tartrate (Lopressor) 12.5 mg BID PO Last administered on 12/11/18 09:17; Admin Dose 12.5 MG; Start 12/09/18 at 21:00 Prednisone (Prednisone) 30 mg DAILY PO Last administered on 12/11/18 09:16; Admin Dose 30 MG; Start 12/11/18 at 09:00 AIDE GONZALES 12, 2019 11:38
[2018-12-11 14:30] VITALS: BP 116/58; PULSE 79; RESP 18
[2018-12-11 20:00] VITALS: BP 133/63; PULSE 76; RESP 19
[2018-12-12] MEDS: ALBUTEROL/IPRATROPIUM (NEB) 3 ML AMP HHN SCH ×6 (01:27→20:15)
[2018-12-12 02:00] VITALS: BP 113/58; PULSE 64; RESP 18
--- NOTE | 2018-12-12 03:46 | PN ---
Date/Time of Note Date/Time of Note DATE: 12/11/18 Assessment/Plan VTE Prophylaxis Risk score (from Nsg)>0 risk: 5 Pharmacological prophylaxis: heparin Lines/Catheters IV Catheter Type (from Nrsg): Peripheral IV Urinary Cath still in place: Yes Reason Cath still needed: urinary retention Assessment/Plan Hospital Course S: no new issues, was planned for discharged today, but developed urinary retention O: Constitutional: alert, oriented, elderly Head: atraumatic, normocephalic Respiratory: diminished, improved bibasal crackles Cardiovascular: tachy, no M Gastrointestinal: S/ NT / ND / +BS Extremities: no edema, good radial pulses assessment and plan: 83-year-old pleasant female who had presented to the emergency room with shortness of breath, previously on home oxygen for chronic pulmonary fibrosis who is admitted and managed as follows 1. Acute respiratory failure on chronic respiratory failure: improved -likely 2.2 #3 -Pulmonary also feels there is no real change in the chest x-ray as compared to prior -continue bronchodilators -Continue antibiotics 2. Leucocytosis -steroid induced? -wbc trending down 3. Acute bronchitis with possible concern for pneumonia with history of pulmonary fibrosis and pulmonary hypertension -continue abx 4. Chronic normocytic anemia 5. Hyponatremia likely dilutional -improved with spot diuresis 6. Chronic hypothyroidism on Synthroid therapy -Tight control?, I slightly reduced Synthroid dose -Free T4 wnl however 7. Hypertension: Currently well controlled 8. Chronic glaucoma 9. Tachycardia improved on BB 11. Diastolic CHF: elevated BNP with Diastolic dysfunction on echo and preserved EF 12. mild to moderate tricuspid regurgitation. Dispo: -will do in and out cath and check PVR after next void. if retention persists, patient will need urology review -also send urine for UA and Cx -hold discharge for now, till urinary issue resolved Prophylaxis : Heparin Result Diagram: 12/11/18 0456 12/11/18 0456 Results 24hrs Laboratory Tests Test 12/11/18 04:56 12/11/18 21:20 White Blood Count 11.8 #H Red Blood Count 4.32 Hemoglobin 12.5 Hematocrit 38.6 Mean Corpuscular Volume 89.4 Mean Corpuscular Hemoglobin 28.9 L Mean Corpuscular Hemoglobin Concent 32.4 Red Cell Distribution Width 13.0 Platelet Count 351 Mean Platelet Volume 10.1 Immature Granulocytes % 1.500 H Neutrophils % 61.1 Lymphocytes % 23.4 Monocytes % 13.5 H Eosinophils % 0.2 Basophils % 0.3 Nucleated Red Blood Cells % 0.0 Immature Granulocytes # 0.180 H Neutrophils # 7.2 Lymphocytes # 2.8 Monocytes # 1.6 H Eosinophils # 0.0 Basophils # 0.0 Nucleated Red Blood Cells # 0.0 Sodium Level 138 Potassium Level 3.9 Chloride Level 91 L Carbon Dioxide Level 39 H Anion Gap 8 Blood Urea Nitrogen 22 H Creatinine 0.70 Est Glomerular Filtrat Rate mL/min Glucose Level 81 # Calcium Level 8.9 Urine Color YELLOW Urine Clarity CLEAR Urine pH 7.0 Urine Specific [place] 1.016 Urine Ketones NEGATIVE Urine Nitrite NEGATIVE Urine Bilirubin NEGATIVE Urine Urobilinogen NEGATIVE Urine Leukocyte Esterase NEGATIVE Urine Hemoglobin NEGATIVE Urine Glucose NEGATIVE Urine Total Protein NEGATIVE Exam/Review of Systems Exam Vitals Vital Signs Date Temp Pulse Resp B/P (MAP) Pulse Ox O2 O2 Flow FiO2 Time Delivery Rate 12/12/18 70 18 99 Nasal 2.0 01:27 Cannula 12/11/18 98.4 133/63 20:00 (86) 12/10/18 28 05:36 Intake and Output 12/11/18 12/11/18 12/12/18 1515:00 23:00 07:00 IntakeIntake Total 530 ml 550 ml OutputOutput Total 700 ml 600 ml BalanceBalance -170 ml -50 ml Results Results 24hrs Laboratory Tests Test 12/11/18 04:56 12/11/18 21:20 White Blood Count 11.8 #H Red Blood Count 4.32 Hemoglobin 12.5 Hematocrit 38.6 Mean Corpuscular Volume 89.4 Mean Corpuscular Hemoglobin 28.9 L Mean Corpuscular Hemoglobin Concent 32.4 Red Cell Distribution Width 13.0 Platelet Count 351 Mean Platelet Volume 10.1 Immature Granulocytes % 1.500 H Neutrophils % 61.1 Lymphocytes % 23.4 Monocytes % 13.5 H Eosinophils % 0.2 Basophils % 0.3 Nucleated Red Blood Cells % 0.0 Immature Granulocytes # 0.180 H Neutrophils # 7.2 Lymphocytes # 2.8 Monocytes # 1.6 H Eosinophils # 0.0 Basophils # 0.0 Nucleated Red Blood Cells # 0.0 Sodium Level 138 Potassium Level 3.9 Chloride Level 91 L Carbon Dioxide Level 39 H Anion Gap 8 Blood Urea Nitrogen 22 H Creatinine 0.70 Est Glomerular Filtrat Rate mL/min Glucose Level 81 # Calcium Level 8.9 Urine Color YELLOW Urine Clarity CLEAR Urine pH 7.0 Urine Specific [place] 1.016 Urine Ketones NEGATIVE Urine Nitrite NEGATIVE Urine Bilirubin NEGATIVE Urine Urobilinogen NEGATIVE Urine Leukocyte Esterase NEGATIVE Urine Hemoglobin NEGATIVE Urine Glucose NEGATIVE Urine Total Protein NEGATIVE Medications Medication Current Medications IV Flush (NS 3 ml) 3 ml PER PROTOCOL IV ; Start 12/08/18 at 02:00 Ondansetron HCl (Zofran Inj) 4 mg Q6H PRN IV NAUSEA/VOMITING; Start 12/08/18 at 02:00 Acetaminophen (Tylenol Tab) 650 mg Q6H PRN PO .PAIN 1-3 OR TEMP; Start 12/08/18 at 02:00 Acetaminophen/ Hydrocodone Bitart ([place] (5/325)) 1 tab Q6H PRN PO .MOD PAIN 4- 6; Start 12/08/18 at 02:00 Morphine Sulfate (morphine) 2 mg Q4H PRN IV .SEVERE PAIN 7-10; Start 12/08/18 at 02:00 Magnesium Hydroxide (Milk Of Mag) 30 ml DAILY PRN PO .CONSTIPATION; Start 12/08/18 at 02:00 Heparin Sodium (Porcine) (Heparin (5000 Units/1ml)) 5,000 unit Q12 SC Last administered on 12/11/18at 21:21; Admin Dose 5,000 UNIT; Start 12/08/18 at 09:00 Lorazepam (Ativan) 0.5 mg Q6H PRN IV ANXIETY; Start 12/08/18 at 02:00 Albuterol/ Ipratropium (Duoneb) 3 ml Q4H RESP THERAPY HHN Last administered on 12/12/18at 01:27; Admin Dose 3 ML; Start 12/08/18 at 05:00 Hydralazine HCl (Apresoline) 10 mg Q6H PRN IV ELEVATED BLOOD PRESSURE; Start 12/08/18 at 02:00 Nitroglycerin (Nitroglycerin (Sl Tab) 0.4 Mg) 1 tab Q5M PRN SL ANGINA; Start 12/08/18 at 02:00 Aspirin (Aspirin) 81 mg DAILY PO Last administered on 12/11/18at 09:16; Admin Dose 81 MG; Start 12/08/18 at 09:00 Calcium Carbonate (Oyster Shell Calcium) 1.25 gm BID PO Last administered on 12/11/18 21:07; Admin Dose 1.25 GM; Start 12/08/18 at 09:00 Brimonidine Tartrate (Alphagan P 0.15%) 1 drop BID BOTH EYES Last administered on 12/11/18 21:07; Admin Dose 1 DROP; Start 12/08/18 at 12:00 Fluticasone Propionate (Flonase 0.05% Nasal) 1 spray BID NASAL Last administered on 12/11/18 21:06; Admin Dose 1 SPRAY; Start 12/08/18 at 21:00 Olopatadine HCl (Patanol 0.1% Oph) 1 drop BID BOTH EYES Last administered on 12/11/18 21:08; Admin Dose 1 DROP; Start 12/08/18 at 12:00 Aztreonam 50 ml @ 100 mls/hr Q12 IVPB Last administered on 12/11/18 21:08; Admin Dose 100 MLS/HR; Start 12/08/18 at 09:00 Pantoprazole (Protonix Tab) 40 mg DAILY@06 PO Last administered on 12/11/18 06:13; Admin Dose 40 MG; Start 12/08/18 at 06:00 Docusate Sodium (Colace) 100 mg Q12 PO Last administered on 12/11/18 21:07; Admin Dose 100 MG; Start 12/09/18 at 09:30 Levothyroxine Sodium (Synthroid) 25 mcg BEFORE BREAKFAST PO Last administered on 12/11/18 06:13; Admin Dose 25 MCG; Start 12/10/18 at 07:00 Metoprolol Tartrate (Lopressor) 12.5 mg BID PO Last administered on 12/11/18 21:07; Admin Dose 12.5 MG; Start 12/09/18 at 21:00 Prednisone (Prednisone) 30 mg DAILY PO Last administered on 12/11/18 09:16; Admin Dose 30 MG; Start 12/11/18 at 09:00 LAUREEN VANEGAS Dec 12, 2018 03:46
[2018-12-12] MEDS: PANTOPRAZOLE (EC) 40 MG TAB PO SCH (06:22)
[2018-12-12] MEDS: LEVOTHYROXINE 25 MCG TAB PO SCH (06:22)
[2018-12-12 08:54] VITALS: BP 144/65; PULSE 67; RESP 18
[2018-12-12] MEDS: AZTREONAM 1 GM/NS (PMX) 50 ML IVPB SCH ×2 (09:16→21:35)
[2018-12-12] MEDS: FLUTICASONE 0.05% 16 GM NAS SPRAY NASAL SCH ×2 (09:16→21:36)
[2018-12-12] MEDS: BRIMONIDINE 0.15% 5 ML OPH BOTH EYES SCH ×2 (09:16→21:37)
[2018-12-12] MEDS: DOCUSATE SODIUM 100 MG CAP PO SCH ×2 (09:16→21:36)
[2018-12-12] MEDS: OLOPATADINE 0.1% 5 ML OPH BOTH EYES SCH ×2 (09:16→21:36)
[2018-12-12] MEDS: ASPIRIN 81 MG TAB PO SCH (09:16)
[2018-12-12] MEDS: predniSONE 10 MG TAB PO SCH (09:17)
[2018-12-12] MEDS: METOPROLOL 25 MG TAB PO SCH ×2 (09:17→21:38)
[2018-12-12] MEDS: CALCIUM CARBONATE 1.25 GM TAB PO SCH ×2 (09:17→21:36)
[2018-12-12] MEDS: HEPARIN 5,000 UNIT/1 ML VIAL SC SCH ×2 (09:19→21:42)
[2018-12-12 15:05] VITALS: BP 129/59; PULSE 71; RESP 20
--- NOTE | 2018-12-12 16:09 | PN ---
Date/Time of Note Date/Time of Note DATE: 12/12/18 TIME: 16:06 Assessment/Plan VTE Prophylaxis Risk score (from Ns)>0 risk: 5 SCD applied (from Ns): Yes Pharmacological prophylaxis: heparin Lines/Catheters IV Catheter Type (from Nrs): Peripheral IV Urinary Cath still in place: Yes Reason Cath still needed: urinary retention Assessment/Plan Hospital Course A/P: 83 yo female with pulmonary fibrosis and chronic respiratory failure presents wt acute on chronic respiratory failure - Hypercapnea wosrening, start BIPAP - Steroids and abx per pulmonary Urinary retention: - Trial of void Glaucoma - Continue eye drops Chronic mild hyponatremia Discharge plan when cleared by pulmonary, may need home bilevel Result Diagram: 12/12/18 0718 12/12/18 0718 Results 24hrs Laboratory Tests Test 12/11/18 21:20 12/12/18 07:18 12/12/18 09:32 Urine Color YELLOW Urine Clarity CLEAR Urine pH 7.0 Urine Specific [place] 1.016 Urine Ketones NEGATIVE Urine Nitrite NEGATIVE Urine Bilirubin NEGATIVE Urine Urobilinogen NEGATIVE Urine Leukocyte Esterase NEGATIVE Urine Hemoglobin NEGATIVE Urine Glucose NEGATIVE Urine Total Protein NEGATIVE White Blood Count 11.1 H Red Blood Count 4.11 L Hemoglobin 11.9 L Hematocrit 37.4 Mean Corpuscular Volume 91.0 Mean Corpuscular Hemoglobin 29.0 Mean Corpuscular 31.8 L Hemoglobin Concent Red Cell Distribution Width 12.9 Platelet Count 340 Mean Platelet Volume 9.9 Immature Granulocytes % 3.600 H Neutrophils % 40.8 Lymphocytes % 38.0 Monocytes % 11.8 H Eosinophils % 4.9 Basophils % 0.9 Nucleated Red Blood Cells % 0.0 Immature Granulocytes # 0.400 H Neutrophils # 4.5 Lymphocytes # 4.2 H Monocytes # 1.3 H Eosinophils # 0.5 Basophils # 0.1 Nucleated Red Blood Cells # 0.0 Sodium Level 132 L Potassium Level 4.1 Chloride Level 89 L Carbon Dioxide Level 42 *H Anion Gap 1 L Blood Urea Nitrogen 21 H Creatinine 0.70 Est Glomerular Filtrat Rate mL/min Glucose Level 82 Calcium Level 9.0 Blood Gas Specimen Source Blood arterial Arterial Blood Date Drawn 12/12/2018 2:00:11 PM Arterial Blood pH 7.430 (Temp corrected) Arterial Blood pCO2 59.8 H (Temp correct) Arterial Blood pO2 59.4 L (Temp corrected) Arterial Blood HCO3 38.8 H Arterial Blood Base Excess 12.1 H Arterial Blood 91.9 L Oxygen Saturation Ernst Test N/A Arterial Blood Gas Right Brachial Puncture Site Arterial 0.5 Blood Carboxyhemoglobin Arterial Blood Methemoglobin 0.3 Blood Gas A-a O2 18.7 Differential Oxyhemoglobin Percent 91.2 L Blood Gas Temperature 37.0 Blood Gas Modality ROOM AIR FiO2 21.0 Blood Gas Notified Whom MDA Blood Gas Notified Time 12/12/2018 2:06:43 PM Subjective 24 Hr Interval Summary Free Text/Dictation Feels well but she is having worsengin hypercapnea Cuevas placed yesterday for urinary retention Exam/Review of Systems Exam Vitals Vital Signs Date Temp Pulse Resp B/P (MAP) Pulse Ox O2 O2 Flow FiO2 Time Delivery Rate 12/12/18 97.5 71 20 129/59 93 Room Air 15:05 (82) 12/12/18 2.0 14:50 Intake and Output 12/11/18 12/11/18 12/12/18 1515:00 23:00 07:00 IntakeIntake Total 530 ml 550 ml 300 ml OutputOutput Total 700 ml 600 ml 1300 ml BalanceBalance -170 ml -50 ml -1000 ml Constitutional: alert, oriented, well developed Psych: no complaints, nl mood/affect Head: normocephalic, atraumatic Eyes: nl conjunctiva, EOMI, nl lids, nl sclera, PERRL ENMT: nl external ears & nose, nl lips & teeth, nl nasal mucosa & septum Neck: supple, non-tender Respiratory: clear to auscultation, normal air movement Cardiovascular: regular rate and rhythm, nl pulses Gastrointestinal: soft, nl liver, spleen, non-tender Musculoskeletal: nl extremities to inspection, nl gait and stance Extremities: normal pulses Neurological: RECRUITER COORDINATOR II-XII intact, nl mental status, nl speech, nl strength Skin: nl turgor; No rash or lesions Lymph: nl lymph nodes Results Results 24hrs Laboratory Tests Test 12/11/18 21:20 12/12/18 07:18 12/12/18 09:32 Urine Color YELLOW Urine Clarity CLEAR Urine pH 7.0 Urine Specific [place] 1.016 Urine Ketones NEGATIVE Urine Nitrite NEGATIVE Urine Bilirubin NEGATIVE Urine Urobilinogen NEGATIVE Urine Leukocyte Esterase NEGATIVE Urine Hemoglobin NEGATIVE Urine Glucose NEGATIVE Urine Total Protein NEGATIVE White Blood Count 11.1 H Red Blood Count 4.11 L Hemoglobin 11.9 L Hematocrit 37.4 Mean Corpuscular Volume 91.0 Mean Corpuscular Hemoglobin 29.0 Mean Corpuscular 31.8 L Hemoglobin Concent Red Cell Distribution Width 12.9 Platelet Count 340 Mean Platelet Volume 9.9 Immature Granulocytes % 3.600 H Neutrophils % 40.8 Lymphocytes % 38.0 Monocytes % 11.8 H Eosinophils % 4.9 Basophils % 0.9 Nucleated Red Blood Cells % 0.0 Immature Granulocytes # 0.400 H Neutrophils # 4.5 Lymphocytes # 4.2 H Monocytes # 1.3 H Eosinophils # 0.5 Basophils # 0.1 Nucleated Red Blood Cells # 0.0 Sodium Level 132 L Potassium Level 4.1 Chloride Level 89 L Carbon Dioxide Level 42 *H Anion Gap 1 L Blood Urea Nitrogen 21 H Creatinine 0.70 Est Glomerular Filtrat Rate mL/min Glucose Level 82 Calcium Level 9.0 Blood Gas Specimen Source Blood arterial Arterial Blood Date Drawn 12/12/2018 2:00:11 PM Arterial Blood pH 7.430 (Temp corrected) Arterial Blood pCO2 59.8 H (Temp correct) Arterial Blood pO2 59.4 L (Temp corrected) Arterial Blood HCO3 38.8 H Arterial Blood Base Excess 12.1 H Arterial Blood 91.9 L Oxygen Saturation Ernst Test N/A Arterial Blood Gas Right Brachial Puncture Site Arterial 0.5 Blood Carboxyhemoglobin Arterial Blood Methemoglobin 0.3 Blood Gas A-a O2 18.7 Differential Oxyhemoglobin Percent 91.2 L Blood Gas Temperature 37.0 Blood Gas Modality ROOM AIR FiO2 21.0 Blood Gas Notified Whom MDA Blood Gas Notified Time 12/12/2018 2:06:43 PM Medications Medication Current Medications IV Flush (NS 3 ml) 3 ml PER PROTOCOL IV ; Start 12/08/18 at 02:00 Ondansetron HCl (Zofran Inj) 4 mg Q6H PRN IV NAUSEA/VOMITING; Start 12/08/18 at 02:00 Acetaminophen (Tylenol Tab) 650 mg Q6H PRN PO .PAIN 1-3 OR TEMP; Start 12/08/18 at 02:00 Acetaminophen/ Hydrocodone Bitart ([place] (5/325)) 1 tab Q6H PRN PO .MOD PAIN 4- 6; Start 12/08/18 at 02:00 Morphine Sulfate (morphine) 2 mg Q4H PRN IV .SEVERE PAIN 7-10; Start 12/08/18 at 02:00 Magnesium Hydroxide (Milk Of Mag) 30 ml DAILY PRN PO .CONSTIPATION; Start 12/08/18 at 02:00 Heparin Sodium (Porcine) (Heparin (5000 Units/1ml)) 5,000 unit Q12 SC Last administered on 12/12/18 09:19; Admin Dose 5,000 UNIT; Start 12/08/18 at 09:00 Lorazepam (Ativan) 0.5 mg Q6H PRN IV ANXIETY; Start 12/08/18 at 02:00 Albuterol/ Ipratropium (Duoneb) 3 ml Q4H RESP THERAPY HHN Last administered on 12/12/18 14:45; Admin Dose 3 ML; Start 12/08/18 at 05:00 Hydralazine HCl (Apresoline) 10 mg Q6H PRN IV ELEVATED BLOOD PRESSURE; Start 12/08/18 at 02:00 Nitroglycerin (Nitroglycerin (Sl Tab) 0.4 Mg) 1 tab Q5M PRN SL ANGINA; Start 12/08/18 at 02:00 Aspirin (Aspirin) 81 mg DAILY PO Last administered on 12/12/18 09:16; Admin Dose 81 MG; Start 12/08/18 at 09:00 Calcium Carbonate (Oyster Shell Calcium) 1.25 gm BID PO Last administered on 12/12/18 09:17; Admin Dose 1.25 GM; Start 12/08/18 at 09:00 Brimonidine Tartrate (Alphagan P 0.15%) 1 drop BID BOTH EYES Last administered on 12/12/18 09:16; Admin Dose 1 DROP; Start 12/08/18 at 12:00 Fluticasone Propionate (Flonase 0.05% Nasal) 1 spray BID NASAL Last admi nistered on 12/12/18 09:16; Admin Dose 1 SPRAY; Start 12/08/18 at 21:00 Olopatadine HCl (Patanol 0.1% Oph) 1 drop BID BOTH EYES Last administered on 12/12/18 09:16; Admin Dose 1 DROP; Start 12/08/18 at 12:00 Aztreonam 50 ml @ 100 mls/hr Q12 IVPB Last administered on 12/12/18 09:16; Admin Dose 100 MLS/HR; Start 12/08/18 at 09:00 Pantoprazole (Protonix Tab) 40 mg DAILY@06 PO Last administered on 12/12/18 06:22; Admin Dose 40 MG; Start 12/08/18 at 06:00 Docusate Sodium (Colace) 100 mg Q12 PO Last administered on 12/12/18 09:16; Admin Dose 100 MG; Start 12/09/18 at 09:30 Levothyroxine Sodium (Synthroid) 25 mcg BEFORE BREAKFAST PO Last administered on 12/12/18 06:22; Admin Dose 25 MCG; Start 12/10/18 at 07:00 Metoprolol Tartrate (Lopressor) 12.5 mg BID PO Last administered on 12/12/18 09:17; Admin Dose 12.5 MG; Start 12/09/18 at 21:00 Prednisone (Prednisone) 30 mg DAILY PO Last administered on 12/12/18 09:17; Admin Dose 30 MG; Start 12/11/18 at 09:00 ACOSTA HUFF MD Dec 12, 2018 16:09
[2018-12-12 20:12] VITALS: BP 102/58; PULSE 80; RESP 18
[2018-12-12 20:55] VITALS: PULSE 67
[2018-12-12 23:10] VITALS: PULSE 71
[2018-12-13] VITALS (7 sets, daily range): BP systolic 99–128; BP diastolic 56–61; PULSE 68–80; RESP 18–20
[2018-12-13] MEDS: ALBUTEROL/IPRATROPIUM (NEB) 3 ML AMP HHN SCH ×4 (00:56→12:24)
[2018-12-13] MEDS: LEVOTHYROXINE 25 MCG TAB PO SCH (06:09)
[2018-12-13] MEDS: PANTOPRAZOLE (EC) 40 MG TAB PO SCH (06:10)
[2018-12-13] MEDS: ASPIRIN 81 MG TAB PO SCH (08:18)
[2018-12-13] MEDS: predniSONE 10 MG TAB PO SCH (08:18)
[2018-12-13] MEDS: DOCUSATE SODIUM 100 MG CAP PO SCH ×2 (08:18→20:23)
[2018-12-13] MEDS: CALCIUM CARBONATE 1.25 GM TAB PO SCH ×2 (08:18→20:22)
[2018-12-13] MEDS: AZTREONAM 1 GM/NS (PMX) 50 ML IVPB SCH (08:20)
[2018-12-13] MEDS: HEPARIN 5,000 UNIT/1 ML VIAL SC SCH ×2 (08:27→20:27)
[2018-12-13] MEDS: METOPROLOL 25 MG TAB PO SCH ×2 (08:28→20:24)
[2018-12-13] MEDS: BRIMONIDINE 0.15% 5 ML OPH BOTH EYES SCH ×2 (08:29→20:22)
[2018-12-13] MEDS: OLOPATADINE 0.1% 5 ML OPH BOTH EYES SCH ×2 (08:29→20:22)
[2018-12-13] MEDS: FLUTICASONE 0.05% 16 GM NAS SPRAY NASAL SCH ×2 (08:30→20:22)
--- NOTE | 2018-12-13 12:39 | CONS ---
Consultation Date/Type/Reason Admit Date/Time Dec 07, 2018 at 23:52 Initial Consult Date 12/08/18 Type of Consult Pulmonary Patient is a very pleasant 83-year-old lady who came into the hospital with a few days history of chest congestion coughing and increased shortness of breath, patient denies any fever, hemoptysis, complains of scant yellow to white sputum production. Denies any chest pain. Since admission patient is feeling much better. Denies any nausea, vomiting any high fever or chills. Complains of very mild sore throat. Past medical history; 1. History of pulmonary fibrosis. 2. Chronic hypoxemia, O2 dependent at home. Medications; reviewed. Allergies; penicillin and codeine. Social history; noncontributory. Family history; patient is single, has 5 children. Has a very supportive family. Occupational history; noncontributory. Review of systems; denies any headache, seizures, sinus symptoms. Complains of cough with production of white to green sputum. Denies any hemoptysis. Any fever or chills. Denies any body aches or myalgias. Denies any abdominal pain, nausea vomiting, melena, hematochezia any urinary symptoms. Patient has fair appetite. Denies any weight loss. Does complain of chronic dyspnea on minimal exertion. General exam; elderly woman, awake alert, currently in no distress. Date/Time of Note DATE: 12/13/18 TIME: 12:38 24 HR Interval Summary Free Text/Dictation Patient's condition is fairly stable. Denies any shortness of breath at rest. Denies any coughing, sputum production or hemoptysis.. Denies any coughing, chest congestion. General exam; elderly woman, awake, currently no distress. HEENT exam; supple neck, no JVD. No lymphadenopathy. Midline trachea. No thyromegaly. No neck masses. Chest exam; bilateral crackles. S1-S2 audible, no murmurs. Regular rhythm. Abdomen exam; soft, nontender. No organomegaly. Bowel sounds audible. Extremity exam; no peripheral edema clubbing. 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 Assessment and recommendations; 1. Patient with history of severe idiopathic pulmonary fibrosis admitted with hypoxemia with interval improvement. 2. Possibly some element of bronchitis with interval improvement as well. 3. Chronic type II respiratory failure. Discontinue Azactam. Agree with discharge on home BiPAP use. Continue prednisone 20 mg daily. Outpatient follow-up with pulmonary clinic. Prognosis is poor. Exam/Review of Systems Exam Vitals Vital Signs Date Temp Pulse Resp B/P (MAP) Pulse Ox O2 O2 Flow FiO2 Time Delivery Rate 12/13/18 78 16 94 Nasal 1.0 12:25 Cannula 12/13/18 97.7 128/61 08:51 (83) 12/13/18 30 03:16 Intake and Output 12/12/18 12/12/18 12/13/18 1515:00 23:00 07:00 IntakeIntake Total 770 ml 490 ml 500 ml OutputOutput Total 850 ml 450 ml 500 ml BalanceBalance -80 ml 40 ml 0 ml Results Result Diagram: 12/13/18 0509 12/13/18 0509 Results 24hrs Laboratory Tests Test 12/13/18 05:09 White Blood Count 13.8 #H Red Blood Count 4.00 L Hemoglobin 11.7 L Hematocrit 36.0 L Mean Corpuscular Volume 90.0 Mean Corpuscular Hemoglobin 29.3 Mean Corpuscular Hemoglobin Concent 32.5 Red Cell Distribution Width 12.7 Platelet Count 349 Mean Platelet Volume 9.9 Immature Granulocytes % 5.300 H Neutrophils % Segmented Neutrophils % (Manual) 58 Band Neutrophils % (Manual) 3 Lymphocytes % Lymphocytes % (Manual) 21 Reactive Lymphocytes % (Manual) 1 H Monocytes % Monocytes % (Manual) 10 Eosinophils % Eosinophils % (Manual) 5 Basophils % Metamyelocytes % (manual) 1 H Myelocytes % (Manual) 1 H Nucleated Red Blood Cells % 0.0 Immature Granulocytes # 0.730 H Neutrophils # Neutrophils # (Manual) 8.1 H Band Neutrophils # 0.4 Lymphocytes (Manual) 2.8 Lymphocytes # Reactive Lymphocytes # 0.1 H Monocytes # Monocytes # (Manual) 1.3 H Eosinophils # Basophils # Metamyelocytes # 0.1 H Myelocytes # 0.1 H Nucleated Red Blood Cells # Platelet Estimate NORMAL Sodium Level 130 L Potassium Level 4.3 Chloride Level 90 L Carbon Dioxide Level 37 H Anion Gap 3 L Blood Urea Nitrogen 26 H Creatinine 0.61 Est Glomerular Filtrat Rate mL/min Glucose Level 94 Calcium Level 9.2 Medications Medication Current Medications IV Flush (NS 3 ml) 3 ml PER PROTOCOL IV ; Start 12/08/18 at 02:00 Ondansetron HCl (Zofran Inj) 4 mg Q6H PRN IV NAUSEA/VOMITING; Start 12/08/18 at 02:00 Acetaminophen (Tylenol Tab) 650 mg Q6H PRN PO .PAIN 1-3 OR TEMP; Start 12/08/18 at 02:00 Acetaminophen/ Hydrocodone Bitart ([place] (5/325)) 1 tab Q6H PRN PO .MOD PAIN 4- 6; Start 12/08/18 at 02:00 Morphine Sulfate (morphine) 2 mg Q4H PRN IV .SEVERE PAIN 7-10; Start 12/08/18 at 02:00 Magnesium Hydroxide (Milk Of Mag) 30 ml DAILY PRN PO .CONSTIPATION; Start 12/08/18 at 02:00 Heparin Sodium (Porcine) (Heparin (5000 Units/1ml)) 5,000 unit Q12 SC Last administered on 12/13/18at 08:27; Admin Dose 5,000 UNIT; Start 12/08/18 at 09:00 Lorazepam (Ativan) 0.5 mg Q6H PRN IV ANXIETY; Start 12/08/18 at 02:00 Albuterol/ Ipratropium (Duoneb) 3 ml Q4H RESP THERAPY HHN Last administered on 12/13/18at 12:24; Admin Dose 3 ML; Start 12/08/18 at 05:00 Hydralazine HCl (Apresoline) 10 mg Q6H PRN IV ELEVATED BLOOD PRESSURE; Start 12/08/18 at 02:00 Nitroglycerin (Nitroglycerin (Sl Tab) 0.4 Mg) 1 tab Q5M PRN SL ANGINA; Start 12/08/18 at 02:00 Aspirin (Aspirin) 81 mg DAILY PO Last administered on 12/13/18at 08:18; Admin Dose 81 MG; Start 12/08/18 at 09:00 Calcium Carbonate (Oyster Shell Calcium) 1.25 gm BID PO Last administered on 12/13/18 08:18; Admin Dose 1.25 GM; Start 12/08/18 at 09:00 Brimonidine Tartrate ([place]ph[place] P 0.15%) 1 drop BID BOTH EYES Last administered on 12/13/18at 08:29; Admin Dose 1 DROP; Start 12/08/18 at 12:00 Fluticasone Propionate (Flonase 0.05% Nasal) 1 spray BID NASAL Last administered on 12/13/18 08:30; Admin Dose 1 SPRAY; Start 12/08/18 at 21:00 Olopatadine HCl (Patanol 0.1% Oph) 1 drop BID BOTH EYES Last administered on 12/13/18 08:29; Admin Dose 1 DROP; Start 12/08/18 at 12:00 Aztreonam 50 ml @ 100 mls/hr Q12 IVPB Last administered on 12/13/18 08:20; Admin Dose 100 MLS/HR; Start 12/08/18 at 09:00 Pantoprazole (Protonix Tab) 40 mg DAILY@06 PO Last administered on 12/13/18 06:10; Admin Dose 40 MG; Start 12/08/18 at 06:00 Docusate Sodium (Colace) 100 mg Q12 PO Last administered on 12/13/18 08:18; Admin Dose 100 MG; Start 12/09/18 at 09:30 Levothyroxine Sodium (Synthroid) 25 mcg BEFORE BREAKFAST PO Last administered on 12/13/18 06:09; Admin Dose 25 MCG; Start 12/10/18 at 07:00 Metoprolol Tartrate (Lopressor) 12.5 mg BID PO Last administered on 12/13/18 08:28; Admin Dose 12.5 MG; Start 12/09/18 at 21:00 Prednisone (Prednisone) 30 mg DAILY PO Last administered on 12/13/18 08:18; Admin Dose 30 MG; Start 12/11/18 at 09:00 AIDE GONZALES 14, 2019 12:39
--- NOTE | 2018-12-13 13:43 | PN ---
Date/Time of Note Date/Time of Note DATE: 12/13/18 TIME: 13:42 Assessment/Plan VTE Prophylaxis Risk score (from Ns)>0 risk: 4 SCD applied (from Ns): Yes Pharmacological prophylaxis: heparin Lines/Catheters [facility] Saline Lock Urinary Cath still in place: Yes Reason Cath still needed: urinary retention Assessment/Plan Hospital Course A/P: 83 yo female with pulmonary fibrosis and chronic respiratory failure presents wt acute on chronic respiratory failure - Hypercapnea wosrening, started on BIPAP - Steroids and abx per pulmonary Urinary retention: - Trial of void Glaucoma - Continue eye drops Chronic mild hyponatremia Discharg with home bilevel Result Diagram: 12/13/18 0509 12/13/18 0509 Results 24hrs Laboratory Tests Test 12/13/18 05:09 White Blood Count 13.8 #H Red Blood Count 4.00 L Hemoglobin 11.7 L Hematocrit 36.0 L Mean Corpuscular Volume 90.0 Mean Corpuscular Hemoglobin 29.3 Mean Corpuscular Hemoglobin Concent 32.5 Red Cell Distribution Width 12.7 Platelet Count 349 Mean Platelet Volume 9.9 Immature Granulocytes % 5.300 H Neutrophils % Segmented Neutrophils % (Manual) 58 Band Neutrophils % (Manual) 3 Lymphocytes % Lymphocytes % (Manual) 21 Reactive Lymphocytes % (Manual) 1 H Monocytes % Monocytes % (Manual) 10 Eosinophils % Eosinophils % (Manual) 5 Basophils % Metamyelocytes % (manual) 1 H Myelocytes % (Manual) 1 H Nucleated Red Blood Cells % 0.0 Immature Granulocytes # 0.730 H Neutrophils # Neutrophils # (Manual) 8.1 H Band Neutrophils # 0.4 Lymphocytes (Manual) 2.8 Lymphocytes # Reactive Lymphocytes # 0.1 H Monocytes # Monocytes # (Manual) 1.3 H Eosinophils # Basophils # Metamyelocytes # 0.1 H Myelocytes # 0.1 H Nucleated Red Blood Cells # Platelet Estimate NORMAL Sodium Level 130 L Potassium Level 4.3 Chloride Level 90 L Carbon Dioxide Level 37 H Anion Gap 3 L Blood Urea Nitrogen 26 H Creatinine 0.61 Est Glomerular Filtrat Rate mL/min Glucose Level 94 Calcium Level 9.2 Subjective 24 Hr Interval Summary Free Text/Dictation [place] a bit better with NIPPV Wants to leave tomorrow not today Exam/Review of Systems Exam Vitals Vital Signs Date Temp Pulse Resp B/P (MAP) Pulse Ox O2 O2 Flow FiO2 Time Delivery Rate 12/13/18 78 16 94 Nasal 1.0 12:25 Cannula 12/13/18 97.7 128/61 08:51 (83) 12/13/18 30 03:16 Intake and Output 12/12/18 12/12/18 12/13/18 1515:00 23:00 07:00 IntakeIntake Total 770 ml 490 ml 500 ml OutputOutput Total 850 ml 450 ml 500 ml BalanceBalance -80 ml 40 ml 0 ml Constitutional: alert, oriented, well developed Psych: no complaints, nl mood/affect Head: normocephalic, atraumatic Eyes: nl conjunctiva, EOMI, nl lids, nl sclera, PERRL ENMT: nl external ears & nose, nl lips & teeth, nl nasal mucosa & septum Neck: supple, non-tender Respiratory: clear to auscultation, normal air movement Cardiovascular: regular rate and rhythm, nl pulses Gastrointestinal: soft, nl liver, spleen, non-tender Musculoskeletal: nl extremities to inspection, nl gait and stance Extremities: normal pulses 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, nl mental status, nl speech, nl strength Skin: nl turgor; No rash or lesions Lymph: nl lymph nodes Results Results 24hrs Laboratory Tests Test 12/13/18 05:09 White Blood Count 13.8 #H Red Blood Count 4.00 L Hemoglobin 11.7 L Hematocrit 36.0 L Mean Corpuscular Volume 90.0 Mean Corpuscular Hemoglobin 29.3 Mean Corpuscular Hemoglobin Concent 32.5 Red Cell Distribution Width 12.7 Platelet Count 349 Mean Platelet Volume 9.9 Immature Granulocytes % 5.300 H Neutrophils % Segmented Neutrophils % (Manual) 58 Band Neutrophils % (Manual) 3 Lymphocytes % Lymphocytes % (Manual) 21 Reactive Lymphocytes % (Manual) 1 H Monocytes % Monocytes % (Manual) 10 Eosinophils % Eosinophils % (Manual) 5 Basophils % Metamyelocytes % (manual) 1 H Myelocytes % (Manual) 1 H Nucleated Red Blood Cells % 0.0 Immature Granulocytes # 0.730 H Neutrophils # Neutrophils # (Manual) 8.1 H Band Neutrophils # 0.4 Lymphocytes (Manual) 2.8 Lymphocytes # Reactive Lymphocytes # 0.1 H Monocytes # Monocytes # (Manual) 1.3 H Eosinophils # Basophils # Metamyelocytes # 0.1 H Myelocytes # 0.1 H Nucleated Red Blood Cells # Platelet Estimate NORMAL Sodium Level 130 L Potassium Level 4.3 Chloride Level 90 L Carbon Dioxide Level 37 H Anion Gap 3 L Blood Urea Nitrogen 26 H Creatinine 0.61 Est Glomerular Filtrat Rate mL/min Glucose Level 94 Calcium Level 9.2 Medications Medication Current Medications IV Flush (NS 3 ml) 3 ml PER PROTOCOL IV ; Start 12/08/18 at 02:00 Ondansetron HCl (Zofran Inj) 4 mg Q6H PRN IV NAUSEA/VOMITING; Start 12/08/18 at 02:00 Acetaminophen (Tylenol Tab) 650 mg Q6H PRN PO .PAIN 1-3 OR TEMP; Start 12/08/18 at 02:00 Acetaminophen/ Hydrocodone Bitart ([place] (5/325)) 1 tab Q6H PRN PO .MOD PAIN 4- 6; Start 12/08/18 at 02:00 Morphine Sulfate (morphine) 2 mg Q4H PRN IV .SEVERE PAIN 7-10; Start 12/08/18 at 02:00 Magnesium Hydroxide (Milk Of Mag) 30 ml DAILY PRN PO .CONSTIPATION; Start 12/08/18 at 02:00 Heparin Sodium (Porcine) (Heparin (5000 Units/1ml)) 5,000 unit Q12 SC Last administered on 12/13/18at 08:27; Admin Dose 5,000 UNIT; Start 12/08/18 at 09:00 Lorazepam (Ativan) 0.5 mg Q6H PRN IV ANXIETY; Start 12/08/18 at 02:00 Albuterol/ Ipratropium (Duoneb) 3 ml Q4H RESP THERAPY HHN Last administered on 12/13/18at 12:24; Admin Dose 3 ML; Start 12/08/18 at 05:00 Hydralazine HCl (Apresoline) 10 mg Q6H PRN IV ELEVATED BLOOD PRESSURE; Start 12/08/18 at 02:00 Nitroglycerin (Nitroglycerin (Sl Tab) 0.4 Mg) 1 tab Q5M PRN SL ANGINA; Start 12/08/18 at 02:00 Aspirin (Aspirin) 81 mg DAILY PO Last administered on 12/13/18at 08:18; Admin Dose 81 MG; Start 12/08/18 at 09:00 Calcium Carbonate (Oyster Shell Calcium) 1.25 gm BID PO Last administered on 12/13/18 08:18; Admin Dose 1.25 GM; Start 12/08/18 at 09:00 Brimonidine Tartrate (Alphagan P 0.15%) 1 drop BID BOTH EYES Last administered on 12/13/18 08:29; Admin Dose 1 DROP; Start 12/08/18 at 12:00 Fluticasone Propionate (Flonase 0.05% Nasal) 1 spray BID NASAL Last administered on 12/13/18 08:30; Admin Dose 1 SPRAY; Start 12/08/18 at 21:00 Olopatadine HCl (Patanol 0.1% Oph) 1 drop BID BOTH EYES Last administered on 12/13/18 08:29; Admin Dose 1 DROP; Start 12/08/18 at 12:00 Pantoprazole (Protonix Tab) 40 mg DAILY@06 PO Last administered on 12/13/18 06:10; Admin Dose 40 MG; Start 12/08/18 at 06:00 Docusate Sodium (Colace) 100 mg Q12 PO Last administered on 12/13/18 08:18; Admin Dose 100 MG; Start 12/09/18 at 09:30 Levothyroxine Sodium (Synthroid) 25 mcg BEFORE BREAKFAST PO Last administered on 12/13/18 06:09; Admin Dose 25 MCG; Start 12/10/18 at 07:00 Metoprolol Tartrate (Lopressor) 12.5 mg BID PO Last administered on 12/13/18 08:28; Admin Dose 12.5 MG; Start 12/09/18 at 21:00 Prednisone (Prednisone) 30 mg DAILY PO Last administered on 12/13/18 08:18; Admin Dose 30 MG; Start 12/11/18 at 09:00 ACOSTA HUFF MD Dec 13, 2018 13:43
[2018-12-13] MEDS: LEVALBUTEROL (NEB) 0.31 MG/3 ML AMP HHN SCH ×2 (16:51→19:59)
[2018-12-14] VITALS (8 sets, daily range): BP systolic 96–139; BP diastolic 50–65; PULSE 62–72; RESP 16–20
[2018-12-14] MEDS: LEVALBUTEROL (NEB) 0.31 MG/3 ML AMP HHN SCH ×4 (03:08→21:15)
[2018-12-14] MEDS: LEVOTHYROXINE 25 MCG TAB PO SCH (06:20)
[2018-12-14] MEDS: PANTOPRAZOLE (EC) 40 MG TAB PO SCH (06:20)
[2018-12-14] MEDS: FLUTICASONE 0.05% 16 GM NAS SPRAY NASAL SCH ×2 (09:15→20:15)
[2018-12-14] MEDS: OLOPATADINE 0.1% 5 ML OPH BOTH EYES SCH ×2 (09:15→20:15)
[2018-12-14] MEDS: predniSONE 10 MG TAB PO SCH (09:16)
[2018-12-14] MEDS: ASPIRIN 81 MG TAB PO SCH (09:16)
[2018-12-14] MEDS: DOCUSATE SODIUM 100 MG CAP PO SCH (09:16)
[2018-12-14] MEDS: BRIMONIDINE 0.15% 5 ML OPH BOTH EYES SCH ×2 (09:16→20:15)
[2018-12-14] MEDS: CALCIUM CARBONATE 1.25 GM TAB PO SCH (09:16)
[2018-12-14] MEDS: METOPROLOL 25 MG TAB PO SCH ×2 (09:17→20:16)
[2018-12-14] MEDS: HEPARIN 5,000 UNIT/1 ML VIAL SC SCH ×2 (09:20→20:19)
--- NOTE | 2018-12-14 13:20 | PN ---
Date/Time of Note Date/Time of Note DATE: 12/14/18 TIME: 13:12 Assessment/Plan VTE Prophylaxis Risk score (from Ns)>0 risk: 4 SCD applied (from Ns): Yes Pharmacological prophylaxis: heparin Lines/Catheters IV [facility] Type [facility]from [facility] Saline Lock Urinary Cath still in place: No Assessment/Plan Hospital Course A/P: 83 yo female with pulmonary fibrosis and chronic respiratory failure presents with acute on chronic respiratory failure - Hypercapnia worsening, started on BIPAP, work of breathing very comfortable, back to baseline - Steroids and abx per pulmonary Urinary retention: - likely 2/2 ipratroprium which I have held - Trial of void Glaucoma - Continue eye drops Chronic mild hyponatremia Discharge with home bilevel when arranged, likely tomorrow Result Diagram: 12/14/18 0711 12/14/18 0711 Results 24hrs Laboratory Tests Test 12/14/18 07:11 White Blood Count 14.5 H Red Blood Count 4.50 Hemoglobin 13.1 Hematocrit 40.0 Mean Corpuscular Volume 88.9 Mean Corpuscular Hemoglobin 29.1 Mean Corpuscular Hemoglobin Concent 32.8 Red Cell Distribution Width 13.1 Platelet Count 374 Mean Platelet Volume 9.9 Immature Granulocytes % 6.800 H Neutrophils % Segmented Neutrophils % (Manual) 47 Band Neutrophils % (Manual) 1 Lymphocytes % Lymphocytes % (Manual) 36 Reactive Lymphocytes % (Manual) 3 H Monocytes % Monocytes % (Manual) 6 Eosinophils % Eosinophils % (Manual) 4 Basophils % Myelocytes % (Manual) 2 H Promyelocytes % (Manual) 1 H Nucleated Red Blood Cells % 0.0 Immature Granulocytes # 0.980 H Neutrophils # Neutrophils # (Manual) 6.8 Band Neutrophils # 0.1 Lymphocytes (Manual) 5.2 H Lymphocytes # Reactive Lymphocytes # 0.4 H Monocytes # Monocytes # (Manual) 0.8 Eosinophils # Basophils # Myelocytes # 0.2 H Promyelocytes # 0.1 H Nucleated Red Blood Cells # Platelet Estimate NORMAL Poikilocytosis 1+ Anisocytosis 1+ Ovalocytes 1+ Sodium Level 131 L Potassium Level 4.3 Chloride Level 89 L Carbon Dioxide Level 37 H Anion Gap 5 Blood Urea Nitrogen 30 H Creatinine 0.65 Est Glomerular Filtrat Rate mL/min Glucose Level 83 Calcium Level 10.0 Subjective 24 Hr Interval Summary Free Text/Dictation Feelign very tired. Offered discharge, doesn't want to go home yet Breathing back to baseline Exam/Review of Systems Exam Vitals Vital Signs Date Temp Pulse Resp B/P (MAP) Pulse Ox O2 O2 Flow FiO2 Time Delivery Rate 12/14/18 Nasal 2.0 09:00 Cannula 12/14/18 97.5 62 20 139/65 100 08:33 (89) 12/14/18 30 03:08 Intake and Output 12/13/18 12/13/18 12/14/18 1515:00 23:00 07:00 IntakeIntake Total 770 ml 400 ml OutputOutput Total 100 ml 400 ml BalanceBalance 770 ml -100 ml 0 ml Constitutional: alert, oriented, well developed Psych: no complaints, nl mood/affect Head: normocephalic, atraumatic Eyes: nl conjunctiva, EOMI, nl lids, nl sclera, PERRL ENMT: nl external ears & nose, nl lips & teeth, nl nasal mucosa & septum Neck: supple, non-tender Respiratory: clear to auscultation, normal air movement Cardiovascular: regular rate and rhythm, nl pulses Gastrointestinal: soft, nl liver, spleen, non-tender Musculoskeletal: nl extremities to inspection, nl gait and stance Extremities: normal pulses 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, nl mental status, nl speech, nl strength Skin: nl turgor; No rash or lesions Lymph: nl lymph nodes Results Results 24hrs Laboratory Tests Test 12/14/18 07:11 White Blood Count 14.5 H Red Blood Count 4.50 Hemoglobin 13.1 Hematocrit 40.0 Mean Corpuscular Volume 88.9 Mean Corpuscular Hemoglobin 29.1 Mean Corpuscular Hemoglobin Concent 32.8 Red Cell Distribution Width 13.1 Platelet Count 374 Mean Platelet Volume 9.9 Immature Granulocytes % 6.800 H Neutrophils % Segmented Neutrophils % (Manual) 47 Band Neutrophils % (Manual) 1 Lymphocytes % Lymphocytes % (Manual) 36 Reactive Lymphocytes % (Manual) 3 H Monocytes % Monocytes % (Manual) 6 Eosinophils % Eosinophils % (Manual) 4 Basophils % Myelocytes % (Manual) 2 H Promyelocytes % (Manual) 1 H Nucleated Red Blood Cells % 0.0 Immature Granulocytes # 0.980 H Neutrophils # Neutrophils # (Manual) 6.8 Band Neutrophils # 0.1 Lymphocytes (Manual) 5.2 H Lymphocytes # Reactive Lymphocytes # 0.4 H Monocytes # Monocytes # (Manual) 0.8 Eosinophils # Basophils # Myelocytes # 0.2 H Promyelocytes # 0.1 H Nucleated Red Blood Cells # Platelet Estimate NORMAL Poikilocytosis 1+ Anisocytosis 1+ Ovalocytes 1+ Sodium Level 131 L Potassium Level 4.3 Chloride Level 89 L Carbon Dioxide Level 37 H Anion Gap 5 Blood Urea Nitrogen 30 H Creatinine 0.65 Est Glomerular Filtrat Rate mL/min Glucose Level 83 Calcium Level 10.0 Medications Medication Current Medications IV Flush (NS 3 ml) 3 ml PER PROTOCOL IV ; Start 12/08/18 at 02:00 Ondansetron HCl (Zofran Inj) 4 mg Q6H PRN IV NAUSEA/VOMITING; Start 12/08/18 at 02:00 Acetaminophen (Tylenol Tab) 650 mg Q6H PRN PO .PAIN 1-3 OR TEMP; Start 12/08/18 at 02:00 Acetaminophen/ Hydrocodone Bitart ([place] (5/325)) 1 tab Q6H PRN PO .MOD PAIN 4- 6; Start 12/08/18 at 02:00 Morphine Sulfate (morphine) 2 mg Q4H PRN IV .SEVERE PAIN 7-10; Start 12/08/18 at 02:00 Magnesium Hydroxide (Milk Of Mag) 30 ml DAILY PRN PO .CONSTIPATION; Start 12/08/18 at 02:00 Heparin Sodium (Porcine) (Heparin (5000 Units/1ml)) 5,000 unit Q12 SC Last administered on 12/14/18at 09:20; Admin Dose 5,000 UNIT; Start 12/08/18 at 09:00 Lorazepam (Ativan) 0.5 mg Q6H PRN IV ANXIETY; Start 12/08/18 at 02:00 Hydralazine HCl (Apresoline) 10 mg Q6H PRN IV ELEVATED BLOOD PRESSURE; Start 12/08/18 at 02:00 Nitroglycerin (Nitroglycerin (Sl Tab) 0.4 Mg) 1 tab Q5M PRN SL ANGINA; Start 12/08/18 at 02:00 Aspirin (Aspirin) 81 mg DAILY PO Last administered on 12/14/18at 09:16; Admin Dose 81 MG; Start 12/08/18 at 09:00 Calcium Carbonate (Oyster Shell Calcium) 1.25 gm BID PO Last administered on 12/14/18at 09:16; Admin Dose 1.25 GM; Start 12/08/18 at 09:00 Brimonidine Tartrate (Alphagan P 0.15%) 1 drop BID BOTH EYES Last administered on 12/14/18 09:16; Admin Dose 1 DROP; Start 12/08/18 at 12:00 Fluticasone Propionate (Flonase 0.05% Nasal) 1 spray BID NASAL Last administered on 12/14/18 09:15; Admin Dose 1 SPRAY; Start 12/08/18 at 21:00 Olopatadine HCl (Patanol 0.1% Oph) 1 drop BID BOTH EYES Last administered on 12/14/18 09:15; Admin Dose 1 DROP; Start 12/08/18 at 12:00 Pantoprazole (Protonix Tab) 40 mg DAILY@06 PO Last administered on 12/14/18 06:20; Admin Dose 40 MG; Start 12/08/18 at 06:00 Docusate Sodium (Colace) 100 mg Q12 PO Last administered on 12/14/18 09:16; Admin Dose 100 MG; Start 12/09/18 at 09:30 Levothyroxine Sodium (Synthroid) 25 mcg BEFORE BREAKFAST PO Last administered on 12/14/18 06:20; Admin Dose 25 MCG; Start 12/10/18 at 07:00 Metoprolol Tartrate (Lopressor) 12.5 mg BID PO Last administered on 12/14/18 09:17; Admin Dose 12.5 MG; Start 12/09/18 at 21:00 Prednisone (Prednisone) 30 mg DAILY PO Last administered on 12/14/18 09:16; Admin Dose 30 MG; Start 12/11/18 at 09:00 Levalbuterol (Xopenex Neb) 0.31 mg Q6H RESP THERAPY HHN Last administered on 12/14/18 08:00; Admin Dose 0.31 MG; Start 12/13/18 at 16:30 ACOSTA HUFF MD Dec 14, 2018 13:20
--- NOTE | 2018-12-14 16:17 | CONS ---
Consult Date/Type/Reason Admit Date/Time Dec 07, 2018 at 23:52 Initial Consult Date 12/08/18 Type of Consultation: Pulm Date/Time of Note DATE: 12/14/18 TIME: 16:15 Subjective No events. Better Objective Vitals Vital Signs Date Temp Pulse Resp B/P (MAP) Pulse Ox O2 O2 Flow FiO2 Time Delivery Rate 12/14/18 97.9 64 20 96/50 (65) 100 Nasal 2.0 14:40 Cannula 12/14/18 21 13:47 Intake and Output 12/13/18 12/13/18 12/14/18 1515:00 23:00 07:00 IntakeIntake Total 770 ml 400 ml OutputOutput Total 100 ml 400 ml BalanceBalance 770 ml -100 ml 0 ml Exam HEENT: Neck supple; no JVD; no LAD CVS: RRR, S1 and S2 CHEST: Bibasilar rales ABD: Soft, NT, + BS EXT: No c/c/e Results/Medications Result Diagram: 12/14/18 0711 12/14/18 0711 Results 24 hrs Laboratory Tests Test 12/14/18 07:11 White Blood Count 14.5 H Red Blood Count 4.50 Hemoglobin 13.1 Hematocrit 40.0 Mean Corpuscular Volume 88.9 Mean Corpuscular Hemoglobin 29.1 Mean Corpuscular Hemoglobin Concent 32.8 Red Cell Distribution Width 13.1 Platelet Count 374 Mean Platelet Volume 9.9 Immature Granulocytes % 6.800 H Neutrophils % Segmented Neutrophils % (Manual) 47 Band Neutrophils % (Manual) 1 Lymphocytes % Lymphocytes % (Manual) 36 Reactive Lymphocytes % (Manual) 3 H Monocytes % Monocytes % (Manual) 6 Eosinophils % Eosinophils % (Manual) 4 Basophils % Myelocytes % (Manual) 2 H Promyelocytes % (Manual) 1 H Nucleated Red Blood Cells % 0.0 Immature Granulocytes # 0.980 H Neutrophils # Neutrophils # (Manual) 6.8 Band Neutrophils # 0.1 Lymphocytes (Manual) 5.2 H Lymphocytes # Reactive Lymphocytes # 0.4 H Monocytes # Monocytes # (Manual) 0.8 Eosinophils # Basophils # Myelocytes # 0.2 H Promyelocytes # 0.1 H Nucleated Red Blood Cells # Platelet Estimate NORMAL Poikilocytosis 1+ Anisocytosis 1+ Ovalocytes 1+ Sodium Level 131 L Potassium Level 4.3 Chloride Level 89 L Carbon Dioxide Level 37 H Anion Gap 5 Blood Urea Nitrogen 30 H Creatinine 0.65 Est Glomerular Filtrat Rate mL/min Glucose Level 83 Calcium Level 10.0 Home Meds Active Scripts Levofloxacin* (Levofloxacin*) 750 Mg Tablet, 750 MG PO DAILY for 5 Days, #5 TAB Prov:MICHAEL BURNHAM 07/03/17 Reported Medications Brimonidine Tartrate* (Alphagan P*) 0.1%-15 Ml Opht Drops, 1 DROP BOTH EYES BID, #1 EA 06/25/17 Fluticasone Furoate (Arnuity Ellipta) 100 Mcg Blst.w.dev, 1 DOSE PO BID, #30 06/25/17 Cyclosporine (Restasis Multidose) 5.5 Ml Drops, 1 DROP BOTH EARS DAILY, BOTTLE 06/25/17 Olopatadine HCl (Pazeo) 2.5 Ml Drops, 1 DROP BOTH EARS QHS, BOTTLE 06/25/17 Calcium Carbonate (Oysco-500) 500 Mg Tablet, 500 MG PO BID, TAB 06/25/17 Colesevelam Hcl* (Welchol*) 625 Mg Tablet, 625 MG PO BID, TAB 06/25/17 Albuterol Sulfate* (Ventolin HFA*) 18 Gm Hfa.aer.ad, 2 PUFF INHALATION Q4H PRN for WHEEZING AND SOB, #1 INHALER 06/25/17 Metoprolol Succinate* (Toprol XL*) 50 Mg Tab.er.24h, 50 MG PO DAILY, #30 TAB 06/25/17 Prochlorperazine* (Prochlorperazine*) 5 Mg Tablet, 5 MG PO TID, TAB 06/25/17 Omeprazole* (Omeprazole*) 20 Mg Capsule.dr, 20 MG PO DAILY, #30 CAP 06/25/17 Levothyroxine Sodium* (Levothyroxine Sodium*) 50 Mcg Tablet, 50 MCG PO BEFORE BREAKFAST, #30 TAB 06/25/17 Aspirin* (Aspirin* Chew) 81 Mg Tab.chew, 81 MG PO DAILY, TAB.CHEW 06/25/17 Ibuprofen* (Ibuprofen*) 400 Mg Tablet, 400 MG PO TID PRN for PAIN, TAB 06/25/17 Losartan Potassium* (Losartan Potassium*) 100 Mg Tablet, 100 MG PO DAILY, TAB 06/25/17 Medications Current Medications IV Flush (NS 3 ml) 3 ml PER PROTOCOL IV ; Start 12/08/18 at 02:00 Ondansetron HCl (Zofran Inj) 4 mg Q6H PRN IV NAUSEA/VOMITING; Start 12/08/18 at 02:00 Acetaminophen (Tylenol Tab) 650 mg Q6H PRN PO .PAIN 1-3 OR TEMP; Start 12/08/18 at 02:00 Acetaminophen/ Hydrocodone Bitart ([place] (5/325)) 1 tab Q6H PRN PO .MOD PAIN 4- 6; Start 12/08/18 at 02:00 Morphine Sulfate (morphine) 2 mg Q4H PRN IV .SEVERE PAIN 7-10; Start 12/08/18 at 02:00 Magnesium Hydroxide (Milk Of Mag) 30 ml DAILY PRN PO .CONSTIPATION; Start 12/08/18 at 02:00 Heparin Sodium (Porcine) (Heparin (5000 Units/1ml)) 5,000 unit Q12 SC Last administered on 12/14/18 09:20; Admin Dose 5,000 UNIT; Start 12/08/18 at 09:00 Lorazepam (Ativan) 0.5 mg Q6H PRN IV ANXIETY; Start 12/08/18 at 02:00 Hydralazine HCl (Apresoline) 10 mg Q6H PRN IV ELEVATED BLOOD PRESSURE; Start 12/08/18 at 02:00 Nitroglycerin (Nitroglycerin (Sl Tab) 0.4 Mg) 1 tab Q5M PRN SL ANGINA; Start 12/08/18 at 02:00 Aspirin (Aspirin) 81 mg DAILY PO Last administered on 12/14/18 09:16; Admin Dose 81 MG; Start 12/08/18 at 09:00 Brimonidine Tartrate (Alphagan P 0.15%) 1 drop BID BOTH EYES Last administered on 12/14/18 09:16; Admin Dose 1 DROP; Start 12/08/18 at 12:00 Fluticasone Propionate (Flonase 0.05% Nasal) 1 spray BID NASAL Last administered on 12/14/18 09:15; Admin Dose 1 SPRAY; Start 12/08/18 at 21:00 Olopatadine HCl (Patanol 0.1% Oph) 1 drop BID BOTH EYES Last administered on 12/14/18 09:15; Admin Dose 1 DROP; Start 12/08/18 at 12:00 Levothyroxine Sodium (Synthroid) 25 mcg BEFORE BREAKFAST PO Last administered on 12/14/18 06:20; Admin Dose 25 MCG; Start 12/10/18 at 07:00 Metoprolol Tartrate (Lopressor) 12.5 mg BID PO Last administered on 12/14/18 09:17; Admin Dose 12.5 MG; Start 12/09/18 at 21:00 Prednisone (Prednisone) 30 mg DAILY PO Last administered on 12/14/18at 09:16; Admin Dose 30 MG; Start 12/11/18 at 09:00 Levalbuterol (Xopenex Neb) 0.31 mg Q6H RESP THERAPY HHN Last administered on 12/14/18at 13:41; Admin Dose 0.31 MG; Start 12/13/18 at 16:30 Assessment/Plan Assessment/Plan (Daily) IMP: 1. Acute on chronic hypercapnic and hypoxemic respiratory failure 2. 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 Query CHP vs. NSIP RECS: 1. CS taper 2. BD's 3. Home oxygen SHAZIA LUCERO MD Dec 14, 2018 16:17
[2018-12-15 01:43] VITALS: PULSE 68
[2018-12-15] MEDS: LEVALBUTEROL (NEB) 0.31 MG/3 ML AMP HHN SCH ×4 (01:43→19:53)
[2018-12-15 02:50] VITALS: BP 135/63; PULSE 53; RESP 20
[2018-12-15] MEDS: LEVOTHYROXINE 25 MCG TAB PO SCH (07:35)
[2018-12-15 08:00] VITALS: BP 148/65; PULSE 71; RESP 18
[2018-12-15] MEDS: ASPIRIN 81 MG TAB PO SCH (08:10)
[2018-12-15] MEDS: predniSONE 10 MG TAB PO SCH (08:10)
[2018-12-15] MEDS: OLOPATADINE 0.1% 5 ML OPH BOTH EYES SCH ×2 (08:11→21:20)
[2018-12-15] MEDS: FLUTICASONE 0.05% 16 GM NAS SPRAY NASAL SCH ×2 (08:11→21:19)
[2018-12-15] MEDS: BRIMONIDINE 0.15% 5 ML OPH BOTH EYES SCH ×2 (08:11→21:20)
[2018-12-15] MEDS: METOPROLOL 25 MG TAB PO SCH ×2 (08:14→21:20)
[2018-12-15] MEDS: HEPARIN 5,000 UNIT/1 ML VIAL SC SCH ×2 (08:21→21:21)
[2018-12-15 14:00] VITALS: BP 108/56; PULSE 55; RESP 18
--- NOTE | 2018-12-15 14:23 | DS ---
Date/Time of Note Date/Time of Note DATE: 12/15/18 TIME: 14:21 Discharge Summary Admission/Discharge Info Admit Date/Time Dec 07, 2018 at 23:52 Discharge Date/Time Discharge Diagnosis Chronic respiratory failure Patient Condition: Stable Hospital Course 83 yo female with pulmonary fibrosis and chronic respiratory failure presents with acute on chronic respiratory failure - She was treated with antibiotics, steroids, and bronchodilators. Her respiratory status resolved to baseline. She was found ot be hypercapneic and was initiated on nocturnal bipap. Per pulmonary system consultant, this was arranged to be used chornically at home at time of discharge Urinary retention: - likely 2/2 ipratroprium which was held Glaucoma - Continued on home eye drops Home Meds Active Scripts Levofloxacin* (Levofloxacin*) 750 Mg Tablet, 750 MG PO DAILY for 5 Days, #5 TAB Prov:MICHAEL BURNHAM 07/03/17 Reported Medications Brimonidine Tartrate* (Alphagan P*) 0.1%-15 Ml Opht Drops, 1 DROP BOTH EYES BID, #1 EA 06/25/17 Fluticasone Furoate (Arnuity Ellipta) 100 Mcg Blst.w.dev, 1 DOSE PO BID, #30 06/25/17 Cyclosporine (Restasis Multidose) 5.5 Ml Drops, 1 DROP BOTH EARS DAILY, BOTTLE 06/25/17 Olopatadine HCl (Pazeo) 2.5 Ml Drops, 1 DROP BOTH EARS QHS, BOTTLE 06/25/17 Calcium Carbonate (Oysco-500) 500 Mg Tablet, 500 MG PO BID, TAB 06/25/17 Colesevelam Hcl* (Welchol*) 625 Mg Tablet, 625 MG PO BID, TAB 06/25/17 Albuterol Sulfate* (Ventolin HFA*) 18 Gm Hfa.aer.ad, 2 PUFF INHALATION Q4H PRN for WHEEZING AND SOB, #1 INHALER 06/25/17 Metoprolol Succinate* (Toprol XL*) 50 Mg Tab.er.24h, 50 MG PO DAILY, #30 TAB 06/25/17 Prochlorperazine* (Prochlorperazine*) 5 Mg Tablet, 5 MG PO TID, TAB 06/25/17 Omeprazole* (Omeprazole*) 20 Mg Capsule.dr, 20 MG PO DAILY, #30 CAP 06/25/17 Levothyroxine Sodium* (Levothyroxine Sodium*) 50 Mcg Tablet, 50 MCG PO BEFORE BREAKFAST, #30 TAB 06/25/17 Aspirin* (Aspirin* Chew) 81 Mg Tab.chew, 81 MG PO DAILY, TAB.CHEW 06/25/17 Ibuprofen* (Ibuprofen*) 400 Mg Tablet, 400 MG PO TID PRN for PAIN, TAB 06/25/17 Losartan Potassium* (Losartan Potassium*) 100 Mg Tablet, 100 MG PO DAILY, TAB 06/25/17 Primary Care Provider Monisha Jean MD Pending Labs Laboratory Tests Test 12/15/18 05:32 White Blood Count 14.3 10^3/ul (4.8-10.8) Red Blood Count 4.23 10^6/ul (4.20-5.40) Hemoglobin 12.3 g/dl (12.0-16.0) Hematocrit 37.9 % (37.0-47.0) Mean Corpuscular Volume 89.6 fl (82.0-101.0) Mean Corpuscular Hemoglobin 29.1 pg (29.0-33.0) Mean Corpuscular Hemoglobin Concent 32.5 g/dl (32.0-37.0) Red Cell Distribution Width 13.2 % (11.5-14.5) Platelet Count 357 10^3/UL (140-415) Mean Platelet Volume 10.8 fl (7.4-10.4) Immature Granulocytes % 7.000 % (0.001-0.429) Neutrophils % % (39.0-77.0) Segmented Neutrophils % (Manual) 49 % (39-77) Band Neutrophils % (Manual) 2 % (0-4) Lymphocytes % % (15.0-51.0) Lymphocytes % (Manual) 27 % (15-51) Monocytes % % (0.0-11.0) Monocytes % (Manual) 9 % (0-11) Eosinophils % % (0.0-7.0) Eosinophils % (Manual) 4 % (0-7) Basophils % % (0.0-2.0) Metamyelocytes % (manual) 4 % (0-0) Myelocytes % (Manual) 4 % (0-0) Promyelocytes % (Manual) 1 % (0-0) Nucleated Red Blood Cells % 0.0 /100WBC (0.0-0.0) Immature Granulocytes # 1.000 10^3/ul (0.0-0.031) Neutrophils # 10^3/ul (1.6-7.5) Neutrophils # (Manual) 7.0 10^3/ul (1.6-7.5) Band Neutrophils # 0.2 10^3/ul (0.0-0.6) Lymphocytes (Manual) 3.8 10^3/ul (0.8-2.9) Lymphocytes # 10^3/ul (0.8-2.9) Monocytes # 10^3/ul (0.3-0.9) Monocytes # (Manual) 1.2 10^3/ul (0.3-0.9) Eosinophils # 10^3/ul (0.0-0.5) Basophils # 10^3/ul (0.0-0.1) Metamyelocytes # 0.5 10^3/ul (0.0-0.0) Myelocytes # 0.5 10^3/ul (0.0-0.0) Promyelocytes # 0.1 10^3/ul (0-0) Nucleated Red Blood Cells # 10^3/ul (0.0-0.0) Platelet Estimate NORMAL Polychromasia 1+ (0-0) Poikilocytosis 1+ (0-0) Anisocytosis 1+ (0-0) Ovalocytes 1+ (0-0) Sodium Level 132 mmol/L (135-144) Potassium Level 4.5 mmol/L (3.5-5.1) Chloride Level 89 mmol/L (97-110) Carbon Dioxide Level 39 mmol/L (21-31) Anion Gap 4 (5-13) Blood Urea Nitrogen 31 mg/dl (7-20) Creatinine 0.67 mg/dl (0.44-1.00) Est Glomerular Filtrat Rate mL/min mL/min (>60) Glucose Level 78 mg/dl (70-220) Calcium Level 9.1 mg/dl (8.4-10.2) ACOSTA HUFF MD Dec 15, 2018 14:23
--- NOTE | 2018-12-15 15:34 | CONS ---
Consult Date/Type/Reason Admit Date/Time Dec 07, 2018 at 23:52 Initial Consult Date 12/08/18 Type of Consultation: Pulm Date/Time of Note DATE: 12/15/18 TIME: 15:33 Subjective No events. Doing better. Objective Vitals Vital Signs Date Temp Pulse Resp B/P (MAP) Pulse Ox O2 O2 Flow FiO2 Time Delivery Rate 12/15/18 97.9 55 18 108/56 98 14:00 (73) 12/15/18 Nasal 1.0 09:00 Cannula 12/15/18 30 01:43 Intake and Output 12/14/18 12/14/18 12/15/18 1515:00 23:00 07:00 IntakeIntake Total 660 ml 340 ml OutputOutput Total 350 ml 250 ml BalanceBalance 310 ml 90 ml Exam HEENT: Neck supple; no JVD; no LAD CVS: RRR, S1 and S2 CHEST: Bibasilar rales ABD: Soft, NT, + BS EXT: No c/c/e Results/Medications Result Diagram: 12/15/18 0532 12/15/18 0532 Results 24 hrs Laboratory Tests Test 12/15/18 05:32 White Blood Count 14.3 H Red Blood Count 4.23 Hemoglobin 12.3 Hematocrit 37.9 Mean Corpuscular Volume 89.6 Mean Corpuscular Hemoglobin 29.1 Mean Corpuscular Hemoglobin Concent 32.5 Red Cell Distribution Width 13.2 Platelet Count 357 Mean Platelet Volume 10.8 H Immature Granulocytes % 7.000 H Neutrophils % Segmented Neutrophils % (Manual) 49 Band Neutrophils % (Manual) 2 Lymphocytes % Lymphocytes % (Manual) 27 Monocytes % Monocytes % (Manual) 9 Eosinophils % Eosinophils % (Manual) 4 Basophils % Metamyelocytes % (manual) 4 H Myelocytes % (Manual) 4 H Promyelocytes % (Manual) 1 H Nucleated Red Blood Cells % 0.0 Immature Granulocytes # 1.000 H Neutrophils # Neutrophils # (Manual) 7.0 Band Neutrophils # 0.2 Lymphocytes (Manual) 3.8 H Lymphocytes # Monocytes # Monocytes # (Manual) 1.2 H Eosinophils # Basophils # Metamyelocytes # 0.5 H Myelocytes # 0.5 H Promyelocytes # 0.1 H Nucleated Red Blood Cells # Platelet Estimate NORMAL Polychromasia 1+ Poikilocytosis 1+ Anisocytosis 1+ Ovalocytes 1+ Sodium Level 132 L Potassium Level 4.5 Chloride Level 89 L Carbon Dioxide Level 39 H Anion Gap 4 L Blood Urea Nitrogen 31 H Creatinine 0.67 Est Glomerular Filtrat Rate mL/min Glucose Level 78 Calcium Level 9.1 Home Meds Active Scripts Levofloxacin* (Levofloxacin*) 750 Mg Tablet, 750 MG PO DAILY for 5 Days, #5 TAB Prov:MICHAEL BURNHAM 07/03/17 Reported Medications Brimonidine Tartrate* (Alphagan P*) 0.1%-15 Ml Opht Drops, 1 DROP BOTH EYES BID, #1 EA 06/25/17 Fluticasone Furoate (Arnuity Ellipta) 100 Mcg Blst.w.dev, 1 DOSE PO BID, #30 06/25/17 Cyclosporine (Restasis Multidose) 5.5 Ml Drops, 1 DROP BOTH EARS DAILY, BOTTLE 06/25/17 Olopatadine HCl (Pazeo) 2.5 Ml Drops, 1 DROP BOTH EARS QHS, BOTTLE 06/25/17 Calcium Carbonate (Oysco-500) 500 Mg Tablet, 500 MG PO BID, TAB 06/25/17 Colesevelam Hcl* (Welchol*) 625 Mg Tablet, 625 MG PO BID, TAB 06/25/17 Albuterol Sulfate* (Ventolin HFA*) 18 Gm Hfa.aer.ad, 2 PUFF INHALATION Q4H PRN for WHEEZING AND SOB, #1 INHALER 06/25/17 Metoprolol Succinate* (Toprol XL*) 50 Mg Tab.er.24h, 50 MG PO DAILY, #30 TAB 06/25/17 Prochlorperazine* (Prochlorperazine*) 5 Mg Tablet, 5 MG PO TID, TAB 06/25/17 Omeprazole* (Omeprazole*) 20 Mg Capsule.dr, 20 MG PO DAILY, #30 CAP 06/25/17 Levothyroxine Sodium* (Levothyroxine Sodium*) 50 Mcg Tablet, 50 MCG PO BEFORE BREAKFAST, #30 TAB 06/25/17 Aspirin* (Aspirin* Chew) 81 Mg Tab.chew, 81 MG PO DAILY, TAB.CHEW 06/25/17 Ibuprofen* (Ibuprofen*) 400 Mg Tablet, 400 MG PO TID PRN for PAIN, TAB 06/25/17 Losartan Potassium* (Losartan Potassium*) 100 Mg Tablet, 100 MG PO DAILY, TAB 06/25/17 Medications Current Medications IV Flush (NS 3 ml) 3 ml PER PROTOCOL IV ; Start 12/08/18 at 02:00 Ondansetron HCl (Zofran Inj) 4 mg Q6H PRN IV NAUSEA/VOMITING; Start 12/08/18 at 02:00 Acetaminophen (Tylenol Tab) 650 mg Q6H PRN PO .PAIN 1-3 OR TEMP; Start 12/08/18 at 02:00 Acetaminophen/ Hydrocodone Bitart ([place] (5/325)) 1 tab Q6H PRN PO .MOD PAIN 4- 6; Start 12/08/18 at 02:00 Morphine Sulfate (morphine) 2 mg Q4H PRN IV .SEVERE PAIN 7-10; Start 12/08/18 at 02:00 Magnesium Hydroxide (Milk Of Mag) 30 ml DAILY PRN PO .CONSTIPATION; Start 12/08/18 at 02:00 Heparin Sodium (Porcine) (Heparin (5000 Units/1ml)) 5,000 unit Q12 SC Last administered on 12/15/18 08:21; Admin Dose 5,000 UNIT; Start 12/08/18 at 09:00 Lorazepam (Ativan) 0.5 mg Q6H PRN IV ANXIETY; Start 12/08/18 at 02:00 Hydralazine HCl (Apresoline) 10 mg Q6H PRN IV ELEVATED BLOOD PRESSURE; Start 12/08/18 at 02:00 Nitroglycerin (Nitroglycerin (Sl Tab) 0.4 Mg) 1 tab Q5M PRN SL ANGINA; Start 12/08/18 at 02:00 Aspirin (Aspirin) 81 mg DAILY PO Last administered on 12/15/18at 08:10; Admin Dose 81 MG; Start 12/08/18 at 09:00 Brimonidine Tartrate (Alphagan P 0.15%) 1 drop BID BOTH EYES Last administered on 12/15/18 08:11; Admin Dose 1 DROP; Start 12/08/18 at 12:00 Fluticasone Propionate (Flonase 0.05% Nasal) 1 spray BID NASAL Last administered on 12/15/18 08:11; Admin Dose 1 SPRAY; Start 12/08/18 at 21:00 Olopatadine HCl (Patanol 0.1% Oph) 1 drop BID BOTH EYES Last administered on 12/15/18 08:11; Admin Dose 1 DROP; Start 12/08/18 at 12:00 Levothyroxine Sodium (Synthroid) 25 mcg BEFORE BREAKFAST PO Last administered on 12/15/18 07:35; Admin Dose 25 MCG; Start 12/10/18 at 07:00 Metoprolol Tartrate (Lopressor) 12.5 mg BID PO Last administered on 12/15/18 08:14; Admin Dose 12.5 MG; Start 12/09/18 at 21:00 Prednisone (Prednisone) 30 mg DAILY PO Last administered on 12/15/18 08:10; Admin Dose 30 MG; Start 12/11/18 at 09:00 Levalbuterol (Xopenex Neb) 0.31 mg Q6H RESP THERAPY HHN Last administered on 12/15/18 08:35; Admin Dose 0.31 MG; Start 12/13/18 at 16:30 Assessment/Plan Assessment/Plan (Daily) IMP: 1. Acute on chronic hypercapnic and hypoxemic respiratory failure 2. 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 Query CHP vs. NSIP RECS: 1. CS taper 2. BD's 3. Home oxygen 4. PT/OT SHAZIA LUCERO MD Dec 15, 2018 15:34
[2018-12-15 20:23] VITALS: BP 115/58; PULSE 64; RESP 18
[2018-12-16 01:26] VITALS: PULSE 58
[2018-12-16] MEDS: LEVALBUTEROL (NEB) 0.31 MG/3 ML AMP HHN SCH ×3 (01:26→13:27)
[2018-12-16 02:41] VITALS: BP 114/72; PULSE 53; RESP 20
[2018-12-16 02:47] VITALS: PULSE 62
[2018-12-16] MEDS: LEVOTHYROXINE 25 MCG TAB PO SCH (06:03)
[2018-12-16 08:33] VITALS: BP 108/54; PULSE 61; RESP 18
[2018-12-16] MEDS: FLUTICASONE 0.05% 16 GM NAS SPRAY NASAL SCH (09:08)
[2018-12-16] MEDS: HEPARIN 5,000 UNIT/1 ML VIAL SC SCH (09:08)
[2018-12-16] MEDS: OLOPATADINE 0.1% 5 ML OPH BOTH EYES SCH (09:08)
[2018-12-16] MEDS: METOPROLOL 25 MG TAB PO SCH (09:09)
[2018-12-16] MEDS: predniSONE 10 MG TAB PO SCH (09:09)
[2018-12-16] MEDS: ASPIRIN 81 MG TAB PO SCH (09:09)
[2018-12-16] MEDS: BRIMONIDINE 0.15% 5 ML OPH BOTH EYES SCH (09:10)
--- NOTE | 2018-12-16 11:47 | CONS ---
Consultation Date/Type/Reason Admit Date/Time Dec 07, 2018 at 23:52 Initial Consult Date 12/08/18 Type of Consult Pulmonary Patient is a very pleasant 83-year-old lady who came into the hospital with a few days history of chest congestion coughing and increased shortness of breath, patient denies any fever, hemoptysis, complains of scant yellow to white sputum production. Denies any chest pain. Since admission patient is feeling much better. Denies any nausea, vomiting any high fever or chills. Complains of very mild sore throat. Past medical history; 1. History of pulmonary fibrosis. 2. Chronic hypoxemia, O2 dependent at home. Medications; reviewed. Allergies; penicillin and codeine. Social history; noncontributory. Family history; patient is single, has 5 children. Has a very supportive family. Occupational history; noncontributory. Review of systems; denies any headache, seizures, sinus symptoms. Complains of cough with production of white to green sputum. Denies any hemoptysis. Any fever or chills. Denies any body aches or myalgias. Denies any abdominal pain, nausea vomiting, melena, hematochezia any urinary symptoms. Patient has fair appetite. Denies any weight loss. Does complain of chronic dyspnea on minimal exertion. General exam; elderly woman, awake alert, currently in no distress. Date/Time of Note DATE: 12/16/18 TIME: 11:45 24 HR Interval Summary Free Text/Dictation Patient condition is stable. Remains awake and alert. Doing very well on 2 L nasal cannula. General exam; elderly woman, awake alert, currently in no distress. H ENT can; supple neck, no JVD. No lymphadenopathy. Midline trachea. No thyromegaly. Chest exam; bilateral crackles. S1-S2 audible, no murmurs. Regular rhythm. Abdomen exam; soft, nontender. No organomegaly. Bowel sounds audible. Extremity exam; no peripheral edema clubbing. COLDFUSION exam; no focal deficit. Assessment and recommendations; 1. Patient admitted with acute bronchitis and possibly flare up of pulmonary fibrosis with significant interval improvement. 2. Chronic hypoxemia. Continue current supportive care. Decrease prednisone to 20 mg daily with further tapering to 10 mg maintenance dose as an outpatient in 48 hours. Consider discharge. Exam/Review of Systems Exam Vitals Vital Signs Date Temp Pulse Resp B/P (MAP) Pulse Ox O2 O2 Flow FiO2 Time Delivery Rate 12/16/18 97.9 61 18 108/54 95 08:33 (72) 12/16/18 Nasal 2.0 08:01 Cannula 12/16/18 30 02:47 Intake and Output 12/15/18 12/15/18 12/16/18 1515:00 23:00 07:00 IntakeIntake Total 600 ml BalanceBalance 600 ml Results Result Diagram: 12/15/18 0532 12/15/18 0532 Medications Medication Current Medications IV Flush (NS 3 ml) 3 ml PER PROTOCOL IV ; Start 12/08/18 at 02:00 Ondansetron HCl (Zofran Inj) 4 mg Q6H PRN IV NAUSEA/VOMITING; Start 12/08/18 at 02:00 Acetaminophen (Tylenol Tab) 650 mg Q6H PRN PO .PAIN 1-3 OR TEMP; Start 12/08/18 at 02:00 Acetaminophen/ Hydrocodone Bitart ([place] (5/325)) 1 tab Q6H PRN PO .MOD PAIN 4- 6; Start 12/08/18 at 02:00 Morphine Sulfate (morphine) 2 mg Q4H PRN IV .SEVERE PAIN 7-10; Start 12/08/18 at 02:00 Magnesium Hydroxide (Milk Of Mag) 30 ml DAILY PRN PO .CONSTIPATION; Start at 02:00 Heparin Sodium (Porcine) (Heparin (5000 Units/1ml)) 5,000 unit Q12 SC Last administered on 12/16/18at 09:08; Admin Dose 5,000 UNIT; Start 12/08/18 at 09:00 Lorazepam (Ativan) 0.5 mg Q6H PRN IV ANXIETY; Start 12/08/18 at 02:00 Hydralazine HCl (Apresoline) 10 mg Q6H PRN IV ELEVATED BLOOD PRESSURE; Start 12/08/18 at 02:00 Nitroglycerin (Nitroglycerin (Sl Tab) 0.4 Mg) 1 tab Q5M PRN SL ANGINA; Start 12/08/18 at 02:00 Aspirin (Aspirin) 81 mg DAILY PO Last administered on 12/16/18at 09:09; Admin Dose 81 MG; Start 12/08/18 at 09:00 Brimonidine Tartrate (Alphagan P 0.15%) 1 drop BID BOTH EYES Last administered on 12/16/18 09:10; Admin Dose 1 DROP; Start 12/08/18 at 12:00 Fluticasone Propionate (Flonase 0.05% Nasal) 1 spray BID NASAL Last administered on 12/16/18 09:08; Admin Dose 1 SPRAY; Start 12/08/18 at 21:00 Olopatadine HCl (Patanol 0.1% Oph) 1 drop BID BOTH EYES Last administered on 12/16/18 09:08; Admin Dose 1 DROP; Start 12/08/18 at 12:00 Levothyroxine Sodium (Synthroid) 25 mcg BEFORE BREAKFAST PO Last administered on 12/16/18 06:03; Admin Dose 25 MCG; Start 12/10/18 at 07:00 Metoprolol Tartrate (Lopressor) 12.5 mg BID PO Last administered on 12/16/18 09:09; Admin Dose 12.5 MG; Start 12/09/18 at 21:00 Prednisone (Prednisone) 30 mg DAILY PO Last administered on 12/16/18 09:09; Admin Dose 30 MG; Start 12/11/18 at 09:00 Levalbuterol (Xopenex Neb) 0.31 mg Q6H RESP THERAPY HHN Last administered on 12/16/18 08:00; Admin Dose 0.31 MG; Start 12/13/18 at 16:30 AIDE GONZALES Dec 16, 2018 11:47
[2018-12-16 14:42] VITALS: BP 108/55; PULSE 59; RESP 18
--- NOTE | 2018-12-16 16:14 | DS ---
Date/Time of Note Date/Time of Note DATE: 12/16/18 TIME: 16:11 Discharge Summary Admission/Discharge Info Admit Date/Time Dec 07, 2018 at 23:52 Discharge Date/Time December 16, 2018 Discharge Diagnosis Acute on chronic hypoxemic and hypercapnic respiratory failure secondary to pulmonary fibrosis Status post antibiotics, steroids and bronchodilators BiPAP arranged for patient home Urinary retention: Resolved - likely 2/2 ipratroprium which was held Glaucoma - Continued on home eye drops Patient Condition: Good Hospital Course Patient is an 83-year-old female with history of pulmonary fibrosis, oxygen dependent who presents with acute hypoxemic and hypercapnic respiratory failure. Patient was started on BiPAP was seen by pulmonary. Patient was given antibiotics, steroids and bronchodilators with improvement in respiratory status. 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 Home Meds Reported Medications Brimonidine Tartrate* (Alphagan P*) 0.1%-15 Ml Opht Drops, 1 DROP BOTH EYES BID, #1 EA 06/25/17 Fluticasone Furoate (Arnuity Ellipta) 100 Mcg Blst.w.dev, 1 DOSE PO BID, #30 06/25/17 Cyclosporine (Restasis Multidose) 5.5 Ml Drops, 1 DROP BOTH EARS DAILY, BOTTLE 06/25/17 Olopatadine HCl (Pazeo) 2.5 Ml Drops, 1 DROP BOTH EARS QHS, BOTTLE 06/25/17 Calcium Carbonate (Oysco-500) 500 Mg Tablet, 500 MG PO BID, TAB 06/25/17 Colesevelam Hcl* (Welchol*) 625 Mg Tablet, 625 MG PO BID, TAB 06/25/17 Albuterol Sulfate* (Ventolin HFA*) 18 Gm Hfa.aer.ad, 2 PUFF INHALATION Q4H PRN for WHEEZING AND SOB, #1 INHALER 06/25/17 Metoprolol Succinate* (Toprol XL*) 50 Mg Tab.er.24h, 50 MG PO DAILY, #30 TAB 06/25/17 Omeprazole* (Omeprazole*) 20 Mg Capsule.dr, 20 MG PO DAILY, #30 CAP 06/25/17 Levothyroxine Sodium* (Levothyroxine Sodium*) 50 Mcg Tablet, 50 MCG PO BEFORE BREAKFAST, #30 TAB 06/25/17 Aspirin* (Aspirin* Chew) 81 Mg Tab.chew, 81 MG PO DAILY, TAB.CHEW 06/25/17 Losartan Potassium* (Losartan Potassium*) 100 Mg Tablet, 100 MG PO DAILY, TAB 06/25/17 Discontinued Reported Medications Prochlorperazine* (Prochlorperazine*) 5 Mg Tablet, 5 MG PO TID, TAB 06/25/17 Ibuprofen* (Ibuprofen*) 400 Mg Tablet, 400 MG PO TID PRN for PAIN, TAB 06/25/17 Discontinued Scripts Levofloxacin* (Levofloxacin*) 750 Mg Tablet, 750 MG PO DAILY for 5 Days, #5 TAB Prov:MICHAEL BURNHAM 07/03/17 Follow-up Plan Follow-up with your PCP in 1 to 2 weeks Primary Care Provider Monisha Jean MD Time spent on discharge: > 30 minutes MICHAEL BURNHAM Dec 16, 2018 16:14
--- NOTE | 2018-12-16 16:15 | PDOCDIS ---
Discharge Instructions DIAGNOSIS Discharge Diagnosis Acute on chronic hypoxemic and hypercapnic respiratory failure secondary to pulmonary fibrosis Status post antibiotics, steroids and bronchodilators BiPAP arranged for patient home Urinary retention: Resolved - likely 2/2 ipratroprium which was held Glaucoma - Continued on home eye drops CONDITION [id number] Patient Condition: [id number] Good HOME CARE INSTRUCTIONS: [id number] Diet Instructions: [id number] Regular ACTIVITY: [id number] Activity Restrictions: [id number] Restrictions FOLLOW UP/APPOINTMENTS Follow-up Plan Follow-up with your PCP in 1 to 2 weeks MICHAEL BURNHAM Dec 16, 2018 16:15
[2018-12-17] MEDS ORDERED: predniSONE 20 MG TAB PO SCH (09:00)
== END 2018-12-16 18:24 | disposition home health service (06) | DRG 193 ==
LOC: E/R 19:18 → 6WM 23:52 → CANRESERV 12-08 02:45 → PP2 12-10 18:56
PROVIDERS: ADMIT Hospitalist; ATTEND Internal Medicine
PROC: 5A09457 Assistance with Respiratory Ventilation, 24-96 Consecutive Hours, Continuous Positive Airway Pressure (ICD-10-PCS; principal; 2018-12-12)
DX: J18.1 Lobar pneumonia, unspecified organism (principal); J96.21 Acute and chronic respiratory failure with hypoxia; J96.22 Acute and chronic respiratory failure with hypercapnia; E87.1 Hypo-osmolality and hyponatremia; E44.1 Mild protein-calorie malnutrition; I50.30 Unspecified diastolic (congestive) heart failure; Z68.1 Body mass index [BMI] 19.9 or less, adult; D64.9 Anemia, unspecified; D72.829 Elevated white blood cell count, unspecified; E03.9 Hypothyroidism, unspecified; E78.5 Hyperlipidemia, unspecified; H40.9 Unspecified glaucoma; I27.20 Pulmonary hypertension, unspecified; I11.0 Hypertensive heart disease with heart failure; I07.1 Rheumatic tricuspid insufficiency; J20.9 Acute bronchitis, unspecified; J84.10 Pulmonary fibrosis, unspecified; R33.0 Drug induced retention of urine; T48.6X5A Adverse effect of antiasthmatics, initial encounter; Z99.81 Dependence on supplemental oxygen; Z79.82 Long term (current) use of aspirin
CPT/HCPCS: 36600; 71045; 80048; 80061; 81003; 82550; 82553; 82803; 83036; 83735; 83880; 84100; 84439; 84443; 84484; 85025; 87086; 92610; 93005; 93306; 94640; 94644; 94660; 94664; 96374; 96375; 97110; 97116; 97161; 97166; 97530; 97535; J0696; J1644; J1940; J2930; J3370; J7512